=== PATIENT | male | born 1985 | race Caucasian/White ===

== ENCOUNTER 2017-11-07 17:18 | Emergency (ER) | payer SELFPAY ==
[2017-11-07 17:19] VITALS: BP 164/116; PULSE 131; RESP 18; TEMP 36.4; O2SAT 99; BMI 20.5
--- NOTE | 2017-11-07 17:52 | ED.VISSUMM ---
- ER Visit Summary Date of Service: 11/07/17 Chief Complaint: Heroin overdose History of Present Illness: The patient is a 32 M with no primary care physician. He reports that he snorted heroin in the bathroom at [facility]. He denies that this was a suicide attempt. Reports that he typically uses meth and only occasionally heroin. He received a dose of Narcan prior to arrival and is awake and appropriate. Physical Examination: Vitals: 97.6, 164/116, 131, 18, 90% on room air which is not hypoxic. General: Well-nourished and well-developed. Head: Normocephalic atraumatic. Neck: Supple, no lymphadenopathy. No JVD. Nontender. Cardiovascular: Tachycardic regular rhythm. No murmur. Respiratory: No respiratory distress. Clear to auscultation bilaterally. Abdominal: Soft, nontender, nondistended, normal bowel sounds. No guarding, rebound, or peritoneal signs. Back: Nontender. Extremities: Nontender, no edema. No injection sites. Skin: Normal color, no rash. Neurologic: Alert and oriented ?3. Cranial nerves II through XII are intact. Normal strength and sensation. Psych: Depressed and tearful. Denies suicidal ideation. Emergency Department Course and Treatment: Patient was observed for approximately 40 minutes in the emergency department. He had a normal level of consciousness. He insisted on leaving. I did discuss them the half-life of Narcan being shorter than that of heroin. He understands this and would like to leave anyway. Treatment Plan: Patient be discharged instructions follow-up at 180 as soon as possible. Return to the emergency department for any worsening symptoms. Disposition: To home in improved and stable condition. Impression: 1. Opiate overdose. This note was generated with [employer] software. It may contain incorrect words, spelling, and punctuation that were not noted in review of the chart prior to signing ED Disposition - Plan for ED Patient: Disposition: Home or Assisted Living Chief Complaint: Overdose Instructions: ED Overdose Opiate Referrals: EIGHTY,ONE [STAFF PHYSICIAN] - As soon as possible
[2017-11-07 18:04] VITALS: BP 165/102; PULSE 124; RESP 24; O2SAT 100
[2017-11-07] MEDS: 0.9% Normal Saline 1,000 ML 1000 ML IV (18:04)
== END 2017-11-07 18:05 | disposition home or self-care (01) ==
LOC: ED 18:05
PROVIDERS: Emergency Provider Emergency Medicine
DX: T40.1X1A Poisoning by heroin, accidental (unintentional), initial encounter (principal); Y92.9 Unspecified place or not applicable; F17.210 Nicotine dependence, cigarettes, uncomplicated
CPT/HCPCS: 96360; 99284; J7030

== ENCOUNTER 2017-11-08 21:13 | Outpatient (REF) | payer SELFPAY ==
[2017-11-08 21:15] VITALS: BP 173/115; PULSE 145; RESP 20; TEMP 38.2; O2SAT 98; BMI 21.2
--- NOTE | 2017-11-08 21:23 | NURSING ---
PATIENT CAME IN VIA [facility], HE IS UNDER POLICE ARREST AND IS HERE TO BE MEDICALLY CLEARED. HE IS CRYING OUT, CONFUSED AT TIMES FALLING IN AND OUT OF SLEEP. HE IS HANDCUFFED TO THE BED. HE APPARENTLY OVERDOSED YESTERDAY. HE IS NOT GIVING ME MUCH INFORMATION.
[2017-11-08] MEDS: LORazepam 2 MG/ML Syringe 0.5 MG IV (21:48)
[2017-11-08 21:51] LABS: Absolute Neutrophil Count 7.1 X10^3/uL (2.0-7.7); Basophil# 0.05 X10^3/uL; Basophil% 0.4 % (0-1); Eosinophil# 0.53 X10^3/uL; Eosinophils% 4.5 % (0-5); Hematocrit 39.3 % (40-54); Hemoglobin 12.7 g/dl (13.0-16.5); Lymphocyte % 24.9 % (19-41); Mean Corp Hgb Conc 32.3 g/gl (32-36); Mean Corpuscular Hgb 29.7 pg (27.0-32.0); Mean Platelet Vol. 9.3 fl (6.2-12.0); Monocyte% 9.4 % (0-10); Neutrophil # 7.08 X10^3/uL (2.7-7.7); Neutrophil % 60.7 % (47-70); POSITIVE COUNT NO; POSITIVE DIFFERENTIAL NO; POSITIVE MORPHOLOGY NO; Platelet Count 243 K/mm3 (150-450); RBC Distribution Width CV 13.6 % (11.6-14.6); Red Blood Count 4.27 M/mm3 (4.6-6.2); White Blood Count 11.7 K/mm3 (4.4-11.0)
--- NOTE | 2017-11-08 21:51 | NURSING ---
PATIENT IS STILL IN CUFFS BUT A LEFT SOFT WRIST RESTRAIN WAS APPLIED BY [facility] VELAZQUE[facility] TO PREVENT PATIENT FROM REMOVING RIGHT AC IV.
[2017-11-08 21:53] VITALS: BP 125/96; PULSE 122; RESP 13; TEMP 38; O2SAT 99
[2017-11-08 22:01] LABS: Anion Gap 7 (5-15); BUN 15 mg/dL (7-18); BUN/Creat Ratio 20.1 RATIO (10-20); Calcium,Total 8.9 mg/dL (8.5-10.1); Chloride 105 mmol/L (98-107); Creatinine, Serum 0.74 mg/dL (0.70-1.30); EST Glomerular Filtration Rate 128 mL/min (>60); Est Glom Filt Rate - Afr Amer 155 mL/min (>60); Estimated Creatinine Clearance 134.75 ml/min; Glucose 98 mg/dL (74-106); Potassium 3.5 mmol/L (3.5-5.1); Sodium Level 141 mmol/L (136-145)
--- NOTE | 2017-11-08 22:21 | ED.RN ---
PATIENT IS SLEEPING SOUNDLY CURRENTLY. HEART RATE IS SLOWER AT SINUS TACH AT 102.
[2017-11-08 22:44] VITALS: BP 102/62; PULSE 97; RESP 16; O2SAT 96
[2017-11-08 22:49] VITALS: TEMP 36.7
[2017-11-08 23:45] VITALS: BP 100/66; PULSE 78; RESP 11; O2SAT 98
--- NOTE | 2017-11-08 23:55 | ED.VISSUMM ---
- ER Visit Summary Date of Service: 11/08/17 Chief Complaint: Abnormal behavior History of Present Illness: The patient is a 32 M brought in by EMS. Patient reportedly was started acting out after he was arrested by police. Police initially stated he seemed to be having trouble breathing. EMS note documents moments of shaking and seeming to be talking to himself. Patient was noted to have been seen in the ER yesterday for heroin overdose. Per prior records, patient is a history of SVT and has had ablation. Physical Examination: Blood pressure is 173/115, temperature 100.7 TA, heart rate 145, respiratory rate 20, pulse ox 98% on room air. Patient is lying in the bed, whispering at times and then yelling out profanities. Head and neck examination reveals no external sign of trauma. Pupils are 4 mm and reactive. Heart is tachycardic and regular. Lung sounds are clear. Abdomen is soft with no focal tenderness on exam. Patient does answer some questions. Occasionally he will to stare blankly at his hand. Appears to be under the influence of drugs. Test Results: CBC was a white count 11.7 hemoglobin 12.7. Chemistry studies unremarkable. EtOH is negative. Emergency Department Course and Treatment: Patient was given 0.5 mg of IV Ativan. Vital signs were monitored-they are improved and stable. Patient has been sleeping comfortably. Patient will be signed out to oncoming physician. Once he is awake he is discharged with police as he is currently under arrest. Treatment Plan: [] Disposition: Discharge Impression: Drug abuse This note was generated with [employer] dictation software. It may contain incorrect words, spelling, and punctuation that were not noted in review of the chart prior to signing ED Disposition - Plan for ED Patient: Chief Complaint: Mental Health Referrals: Care Physician,No Primary [Primary Care Provider] -
--- NOTE | 2017-11-08 23:58 | ED.DEP ---
ED Disposition - Plan for ED Patient: Disposition: Home or Assisted Living Chief Complaint: Mental Health Instructions: ED Drug Abuse General Referrals: EIGHTY,ONE [STAFF PHYSICIAN] -
[2017-11-09 01:48] VITALS: BP 100/69; PULSE 82; RESP 14; O2SAT 95
--- NOTE | 2017-11-09 01:49 | ED.RN ---
IV DC'ED, CATHETER INTACT, SMALL GAUZE DRESSING PLACED. DISCHARGE INSTRUCTIONS GIVEN TO [facility] TO GO WITH PATIENT TO [facility].
== END 2017-11-09 01:51 | disposition home or self-care (01) ==
LOC: ED 21:13
PROVIDERS: Visit Provider Emergency Medicine
DX: F19.10 Other psychoactive substance abuse, uncomplicated (principal); Z86.79 Personal history of other diseases of the circulatory system; Z98.890 Other specified postprocedural states; Z72.0 Tobacco use
CPT/HCPCS: 80048; 80320; 85025; 96374; A4216; G0480

== ENCOUNTER 2019-05-06 20:17 | Inpatient (IN) | payer MEDICAID, SELFPAY ==
[2019-05-06] VITALS (10 sets, daily range): BP systolic 114–133; BP diastolic 69–99; PULSE 94–130; RESP 15–18; TEMP 36.2–37.4; O2SAT 95–100; BMI 23.6; BMI 22.1; BMI 21.3
--- NOTE | 2019-05-06 20:46 | EKG12_ITS ---
Test Reason : COUGH Blood Pressure : / mmHG Vent. Rate : 111 BPM Atrial Rate : 111 BPM P-R Int : 132 ms QRS Dur : 084 ms QT Int : 318 ms P-R-T Axes : 076 047 045 degrees QTc Int : 432 ms Sinus tachycardia Otherwise normal ECG Confirmed by DARREL SALDANA ([id number]), newspaper editor managing MACARENA AVALOS ([id number]) on 05/09/2019 1:10:26 PM Referred By: ERICKA Confirmed By:DARREL SALDANA
--- NOTE | 2019-05-06 20:47 | CT_ITS ---
STUDY: CT FACIAL BONES WITH CONTRAST REASON FOR EXAM: Male, 33 years old. FACIAL ABSCESS RIGHT SIDE RADIATION DOSAGE (If Supplied By Facility): CTDIvol = ( 29.38 ) mGy, DLP = ( 664.99 ) mGycm TECHNIQUE: The patient was scanned in a multi detector CT scanner. Transaxial imaging was performed following the intravenous administration of IV. Sagittal and coronal images were reconstructed. Individualized dose optimization techniques were used for this CT. COMPARISON: None. FINDINGS: There is cellulitis within the subcutaneous fat of the right face in association with a large thick-walled multi septated fluid collection measuring approximately 7.6 x 7.1 x 2 cm lateral to the right zygomatic arch extending both superiorly and inferiorly There are associated mildly enlarged nodes in the right posterior triangle and vascular space. Normal orbital herring and orbital contents. Normal nasal bones and anterior nasal spine. Normal facial bones. There is no demonstrated fracture. There is multifocal polypoid mucosal thickening in the right maxillary sinus and mild mucosal thickening in the left. There is also mild mucosal thickening within the ethmoid air cells CT/Sinus/Facial Bone WITH Contras IMPRESSION: Diffuse cellulitis in association with large multi septated abscess in the right facial soft tissues lateral to the zygomatic arch extending superiorly and inferiorly with associated inflammatory adenopathy.. No evidence for associated osteomyelitis. Electronically Signed: Itz Pate MD at 22:05 EDT , Service support ,
--- NOTE | 2019-05-06 20:49 | ED.VIS.GEN ---
History of Present Illness Chief Complaint: Abscess Informant: Patient Onset: Days Context: Gradual Onset Timing: Continuous Narrative: Patient is a 33-year-old male with history of SVT status post ablation presenting with facial pain, swelling and redness. Patient states is been worsening over the past few days. He has pus draining from the right side of his face. He denies any associated fever. He does have a headache and right-sided ear pain. He notes when he was walking here today he started to have a little bit of cough and runny nose. This is new within the last few hours. Patient denies any difficulty breathing or chest pain. He states he has never sought been in the ER. He denies any known history of MRSA. He does have a history of drug use but states he has not used in the last year. He states he was please from snf 3 months ago. He denies any sick contacts. He denies any other complaints at this time. He is been taking Tylenol at home with minimal relief of his symptoms. He denies any vision changes. Past Medical History - Allergies and Home Meds Allergies/Adverse Reactions: Allergies venom-honey bee [bee venom (honey bee)] Allergy (Verified 05/06/19 20:22) Anaphylaxis Past Medical History: - - SVT Surgical History: - - Cardiac ablation Smoking Status: Current every day smoker Review of Systems General: Reports: Chills, Malaise. Denies: Fever, Sweats Eyes: Denies: Visual changes - bilaterally, Diplopia ENT: Reports: Right ear pain, Rhinorrhea. Denies: Sore throat Cardiovascular: Denies: Chest pain, Palpitations Respiratory: Reports: Cough. Denies: Dyspnea, Dyspnea on exertion Gastrointestinal: Denies: Abdominal pain, Nausea, Vomiting, Diarrhea, Melena, Hematochezia Genitourinary: Denies: Dysuria, Hematuria, Frequency Musculoskeletal: Denies: Back pain, Extremity Pain Skin: Reports: Rash - Right face, Abscess - Right face Neurological: Reports: Headache. Denies: Weakness, Numbness Physical Exam Vital Signs/Narrative: Vital Signs Temp Pulse Resp BP Pulse Ox 05/06/19 20:17 97.1 F L 130 H 15 119/87 H 98 Inital Vital Signs reviewed: Yes General: Well nourished, Well developed, No Acute Distress Head: Normocephalic, Atraumatic Eyes: Perrl, EOMI, - - No exophthalmos present ENT: Moist mucous membranes, - - Rhinorrhea, erythema of the right tympanic membrane, difficult to get a good look as patient did not tolerate secondary to pain. No mastoid tenderness. Normal left tympanic membrane Neck: Supple, - - No nuchal rigidity Cardiovascular: Regular rhythm, No murmurs, Tachycardia Respiratory: No distress, CTA bilaterally, Chest nontender Abdomen: Soft, Nontender, Nondistended, Normal bowel sounds Back: Nontender, Normal Inspection Extremities: Nontender, No edema Skin: - - Warmth and erythema spreading out from the right cheek towards the ear as well as towards orbital area, associated of fluctuance approximately 5 cm in length over the right lateral face. There is active purulent discharge from 2 sites on the cheek. Erythema tracks down the right lateral neck with associated warmth. No crepitus appreciated. On patient's extremities he has multiple scattered circumferential scabs consistent with skin picking Neurological: Alert, Oriented x3, Cranial nerves II-XII grossly intact, Normal Strength, Normal Sensation Psychological: Normal affect, Normal Mood Diagnostic/Tx/Re-eval Clinical Impression(s) from Imaging Studies Facial/Sinus 05/06/19 20:47 IMPRESSION: Diffuse cellulitis in association with large multi septated abscess in the right facial soft tissues lateral to the zygomatic arch extending superiorly and inferiorly with associated inflammatory adenopathy.. No evidence for associated osteomyelitis. Electronically Signed: Izt Pate MD at 22:05 EDT , Service support , Chest X-Ray 05/06/19 21:00 IMPRESSION: No acute cardiopulmonary pathology Electronically Signed: Itz Pate MD at 21:10 EDT , Service support , Laboratory Data 05/06/19 05/06/19 05/06/19 20:59 20:59 20:59 WBC 19.1 H RBC 4.50 L Hgb 13.4 Hct 39.8 L MCV 88.4 MCH 29.8 MCHC 33.7 RDW Std Deviation 43.6 RDW Coeff of Sedrick 13.4 Plt Count 357 MPV 9.1 Immature Gran % (Auto) 0.400 Neut % (Auto) 76.8 H Lymph % (Auto) 13.6 L [place] % (Auto) 7.4 Eos % (Auto) 1.2 Baso % (Auto) 0.6 Absolute Neuts (auto) 14.7 H Absolute Lymphs (auto) 2.59 Nucleated RBC % 0 PT 14.6 INR 1.2 APTT 35.3 Sodium 135 L Potassium 3.4 L Chloride 99 Carbon Dioxide 30.0 Anion Gap 6 BUN 9 Creatinine 0.79 Estim Creat Clear Calc 127.10 Est GFR (MDRD) Af Amer 143 Est GFR (MDRD) Non-Af 118 BUN/Creatinine Ratio 11.3 Glucose 107 H Lactic Acid Calcium 9.2 Total Bilirubin 0.60 AST 22 ALT 50 Alkaline Phosphatase 120 H Total Protein 8.5 H Albumin 3.1 L Globulin 5.4 H Albumin/Globulin Ratio 0.6 L Urine Color Urine Clarity Urine pH Ur Specific [place] Urine Protein Urine Glucose (UA) Urine Ketones Urine Occult Blood Urine Nitrite Urine Bilirubin Urine Urobilinogen Ur Leukocyte Esterase Urine RBC Urine WBC Ur Squamous Epith Cells Urine Bacteria Urine Mucus 05/06/19 05/06/19 05/06/19 20:59 21:55 23:10 WBC RBC Hgb Hct MCV MCH MCHC RDW Std Deviation RDW Coeff of Sedrick Plt Count MPV Immature Gran % (Auto) Neut % (Auto) Lymph % (Auto) [place] % (Auto) Eos % (Auto) Baso % (Auto) Absolute Neuts (auto) Absolute Lymphs (auto) Nucleated RBC % PT INR APTT Sodium Potassium Chloride Carbon Dioxide Anion Gap BUN Creatinine Estim Creat Clear Calc Est GFR (MDRD) Af Amer Est GFR (MDRD) Non-Af BUN/Creatinine Ratio Glucose Lactic Acid Cancelled 1.4 Calcium Total Bilirubin AST ALT Alkaline Phosphatase Total Protein Albumin Globulin Albumin/Globulin Ratio Urine Color Straw Urine Clarity Clear Urine pH 7.0 Ur Specific [place] 1.005 Urine Protein Negative Urine Glucose (UA) Normal Urine Ketones Negative Urine Occult Blood Negative Urine Nitrite Negative Urine Bilirubin Negative Urine Urobilinogen Normal Ur Leukocyte Esterase Negative Urine RBC 0-5 SEEN Urine WBC 0-5 SEEN Ur Squamous Epith Cells 0-5 SEEN Urine Bacteria 0 SEEN Urine Mucus 0 SEEN - Rhythm Strip Rhythm Strip: Sinus Tach Rate: 111 Ectopy: None - EKG Initial EKG Interpretation: Sinus Tachycardia, - - Sinus tachycardia at a rate of 111 Normal intervals Normal axis Normal ST segments - Medical Decision Making Patient is evaluated for abscess and cellulitis to his right face. Patient does not have any involvement of the extraocular eye muscles or his vision. Patient does not have any airway compromise. There is no crepitus or signs of gas gangrene. He is mentating appropriately and I do not suspect meningoencephalitis. CT of the face shows that there is a 7 cm x 7 cm multiloculated abscess in the affected area. Is already spontaneously draining however I&D is performed to open up further. Patient does have a significant leukocytosis in the setting of tachycardia. He meets criteria for sepsis. His lactate is below 2. He is not hypotensive and is hemodynamically stable. Tachycardia does improve with pain control with IV fluids. Patient is started on IV vancomycin and Unasyn per hospital sepsis protocol after cultures were obtained. Patient admitted to medicine floor for further treatment and evaluation. I did discuss the case with ENT on-call, Dr. Kelly who is aware and will see the patient in the morning. He did recommend adding on HIV test. This is ordered. Patient is admitted to medicine service by Dr. Ellis. Procedures Procedure(s): Incision and drainage. 1% lidocaine with epinephrine locally infiltrated. Patient has a central area that is already draining. This is extended with a #10 blade. Second 1 cm vertical incision is made on the area of abscess that is just proximal to the right ear. Pressure is applied and a large amount of purulent drainage is obtained from both sites. I attempted to open up with loculations. Patient was premedicated with Dilaudid but still had significant pain with procedure. Was not able to fully complete because of pain control. No packing was placed but wounds were left open to hopefully encourage further drainage. ED Disposition - Plan for ED Patient: Disposition: Acute Care Hospital [facility] Diagnosis: Facial cellulitis, Cutaneous abscess of face, Sepsis
--- NOTE | 2019-05-06 21:00 | RAD_ITS ---
STUDY: X-RAY CHEST REASON FOR EXAM: Male, 33 years old. cough, runny nose TECHNIQUE: AP portable COMPARISON: November 11, 2016 FINDINGS: The lungs are clear and expanded. There is no demonstrated pleural abnormality. Normal size heart. Normal mediastinum and mckayla. Normal visualized pulmonary arteries. Normal visualized aortic arch and descending thoracic aorta. Dorsal spine demonstrates mild scoliosis and degenerative change. Normal visualized ribs, clavicles, and shoulders. There is no demonstrated abnormality of the visualized soft tissue structures of the upper abdomen. No significant change since prior exam RAD/Chest 1 View (Portable) IMPRESSION: No acute cardiopulmonary pathology Electronically Signed: Itz Pate MD at 21:10 EDT , Service support ,
[2019-05-06 21:21] LABS: Absolute Lymphocyte Count 2.59 X10^3/uL (0.83-4.51); Absolute Neutrophil Count 14.7 X10^3/uL (2.0-7.7); Basophil# 0.11 X10^3/uL; Basophil% 0.6 % (0-1); Eosinophil# 0.22 X10^3/uL; Eosinophils% 1.2 % (0-5); Hematocrit 39.8 % (40-54); Hemoglobin 13.4 g/dL (13.0-16.5); Lymphocyte # 2.59 X10^3/ul (4.0); Lymphocyte % 13.6 % (19-41); Mean Corp Hgb Conc 33.7 g/dL (32-36); Mean Corpuscular Hgb 29.8 pg (27.0-32.0); Mean Corpuscular Volume 88.4 fL (80-94); Mean Platelet Vol. 9.1 fl (6.2-12.0); Monocyte# 1.41 X10^3/uL; Monocyte% 7.4 % (0-10); NRBC Flagged by Analyzer 0 % (0-5); Neutrophil # 14.67 X10^3/uL (2.7-7.7); Neutrophil % 76.8 % (47-70); Platelet Count 357 K/mm3 (150-450); RBC Distribution Width CV 13.4 % (11.6-14.6); RBC Distribution Width SD 43.6 fl (35.1-43.9); White Blood Count 19.1 K/mm3 (4.4-11.0)
[2019-05-06] MEDS: Morphine 4 MG/ML Syringe IV (21:24)
[2019-05-06] MEDS: 0.9% Normal Saline 1,000 ML 999 ML IV (21:24)
[2019-05-06] MEDS: Ketorolac 15 MG/ML Vial IV (21:24)
[2019-05-06 21:26] LABS: International Normalized Ratio 1.2; Prothrombin Time (Protime)PT. 14.6 SECONDS (11.7-14.9)
[2019-05-06 21:27] LABS: Partial Thromboplast Time 35.3 Seconds (24.1-36.2)
[2019-05-06 21:34] LABS: ALB/GLOB Ratio 0.6 RATIO (0.9-2.4); AST(SGOT) 22 U/L (15-37); Alanine Aminotransfer ALT/SGPT 50 U/L (16-61); Albumin, Serum 3.1 g/dL (3.2-5.0); Alkaline Phosphatase 120 U/L (45-117); Anion Gap 6 (5-15); BUN 9 mg/dL (7-18); BUN/Creat Ratio 11.3 RATIO (10-20); Calcium,Total 9.2 mg/dL (8.5-10.1); Chloride 99 mmol/L (98-107); Creatinine, Serum 0.79 mg/dL (0.70-1.30); EST Glomerular Filtration Rate 118 mL/min (>60); Est Glom Filt Rate - Afr Amer 143 mL/min (>60); Globulin 5.4 g/dL (2.2-4.2); Glucose 107 mg/dL (74-106); Potassium 3.4 mmol/L (3.5-5.1); Protein, Total 8.5 g/dL (6.4-8.2); Sodium Level 135 mmol/L (136-145)
[2019-05-06 22:31] LABS: Lactic Acid 1.4 mmol/L (0.4-1.9)
[2019-05-06] MEDS: HYDROmorphone 1 MG/ML Syringe IV (23:01)
--- NOTE | 2019-05-06 23:16 | PCM.HP.STD ---
Problem List (1) Right facial abscess with cellulitis Status: Acute (2) History of polysubstance use Status: Chronic (3) Dental caries Status: Chronic History of Present Illness Date of Admission: 05/06/19 Chief Complaint: Left facial swelling and abscess for 1 week The patient is a 33 year old M with history of dental caries for long time came to ER with right-sided facial pain, swelling and redness progressively worsening for about 1 week. Purulent drainage from the right side of the face. Patient denies any associated fever or chills. Has headache mainly around right orbital area, frontal headache, right side of face and ear. Patient denies diplopia, nystagmus but at one time blurry vision. Patient denies any recent contact with sick person or suspected: Person in crowd. Complains of mild runny nose but denies any cough to me. He has history of polysubstance use in the past with last ER visit in October 2017 for heroin overdose and claims he has been clean for 1 year. In the past he has used heroin, fentanyl, ecstasy, methamphetamine and all possible drugs. He also smokes cigarettes about 1 pack in the beginning but currently few cigarettes. In ED he had a mild fever 99.4, heart rate 1 at 30 per blood, respiratory rate 15 with no hypoxia. Basic labs shows leukocytosis 19,000 with neutrophils 76%. K3.4, sodium 135. Alkaline phosphatase 120. Glucose 107. Albumin 3.1. Lactic acid normal. UA negative. CT face/sinus was done which shows diffuse cellulitis, with large multiseptated abscess of 7.6 x 7.1 x 2 cm, lateral to the right zygomatic arch extending both superiorly and inferiorly with inflammatory adenopathy. No evidence of associated osteomyelitis. Normal orbital herring and orbital contents. Nasal bones and anterior nasal spine. Normal facial bones. Chest x-ray reported normal. Past Medical History Past Medical History (Chronic Problems): Chronic Problems (This Medical Record has been edited. Action required.) History of polysubstance use (Chronic) Dental caries (Chronic) Allergies venom-honey bee [bee venom (honey bee)] Allergy (Verified 05/06/19 20:22) Anaphylaxis Home Medications: Ambulatory Orders Medication Instructions Recorded No Known/Unobtainable [No Known 11/11/16 Home Medications] Surgical History: - - Cardiac ablation Smoking Status: Current every day smoker Tobacco Use: Cigarettes Alcohol: None Drugs: None - *Family History Paternal History Items: No pertinent history Review of Systems Constitutional: Reports: Malaise, Weakness, Fatigue Eyes: Reports: Blurred vision. Denies: Double vision HEENT: Reports: Head Aches, Sinus Congestion. Denies: Sinus Drainage Cardiovascular: Denies: Chest Pain, Palpitations Respiratory: Denies: Cough, Shortness of breath at rest, Sputum production Gastrointestinal: Denies: Abdominal Pain, Nausea, Vomiting Genitourinary: Denies: Dysuria Musculoskeletal: Denies: Joint Pain, Joint Tenderness Skin: Reports: - - Small pustules about 2 or 3 in right forearm.. Denies: Rash, Wounds Neurological: Denies: Numbness, Tingling, Focal weakness Psychiatric: Denies: Anxiety, Depression, Homicidal Ideations, Suicidal Ideations Hematologic/ Lymphatic: Denies: Easy Bruising, Easy Bleeding VTE Information - Inpt Only VTE Present on Admission: No VTE Mechan Device Prophylaxis: None VTE Pharm Prophylaxis ordered?: Yes Patient Problems: Active and Suspected Problems (This Medical Record has been edited. Action required.) Right facial abscess with cellulitis (Acute) - Physical Exam Vitals/I&O's: Vital Signs Temp Pulse Resp BP Pulse Ox 98.6 F 98 16 125/83 H 98 05/06/19 23:08 05/06/19 23:08 05/06/19 23:08 05/06/19 23:08 05/06/19 23:08 Oxygen Delivery Method Room Air Weight: 150 lb 5.684 oz Body Mass Index (BMI) 22.1 Intake and Output for Last 24 Hours 05/04/19 05/05/19 05/06/19 23:59 23:59 23:59 Intake Total 1112 / 1112 Balance 1112 / 1112 General: Alert, Oriented x3, Cooperative HEENT: Atraumatic, PERRLA, EOMI, Normocephalic, - - Large swelling over the right side of the face, along the zygomatic arch extending up to right infraorbital region, swelling of right eyelid, extending laterally up to the external ear and inferiorly to upper half of neck. Purulent discharge present. Neck: Supple, No JVD, Negative Carotid Bruits Lungs: Clear to auscultation, Normal air movement, No rhonchi, No wheeze, No rales Cardiovascular: Regular Rhythm, Normal S1, Normal S2, No murmurs, Tachycardic Abdomen: Bowel Sounds Present, Soft, Non Tender, Non-Distended Extremities: No edema, Capillary Refill Less than 3 Seconds Skin: Rash Present - Elevated stressors divorce cellulitis present on right side of the face extending up to the neck Musculoskeletal: No Tenderness to Palpation of Joints or Extremities Lymphatic: - - Right cervical lymphadenitis and posterior triangle and anterior triangle of neck Neurological: Cranial nerves II-XII grossly intact, Deep Tendon Reflexes 2+/4 and Symmetrical, Neuro grossly intact Psych/Mental Status: Normal Affect, Appropriate Laboratory Results 05/06/19 20:59: WBC 19.1 H, RBC 4.50 L, Hgb 13.4, Hct 39.8 L, MCV 88.4, MCH 29.8, MCHC 33.7, RDW Std Deviation 43.6, RDW Coeff of Sedrick 13.4, Plt Count 357, MPV 9.1, Immature Gran % (Auto) 0.400, Neut % (Auto) 76.8 H, Lymph % (Auto) 13.6 L, Grainger % (Auto) 7.4, Eos % (Auto) 1.2, Baso % (Auto) 0.6, Absolute Neuts (auto) 14.7 H, Absolute Lymphs (auto) 2.59, Nucleated RBC % 0 05/06/19 20:59: PT 14.6, INR 1.2, APTT 35.3 05/06/19 20:59: Sodium 135 L, Potassium 3.4 L, Chloride 99, Carbon Dioxide 30.0, Anion Gap 6, BUN 9, Creatinine 0.79, Estim Creat Clear Calc 127.10, Est GFR (MDRD) Af Amer 143, Est GFR (MDRD) Non-Af 118, BUN/Creatinine Ratio 11.3, Glucose 107 H, Calcium 9.2, Total Bilirubin 0.60, AST 22, ALT 50, Alkaline Phosphatase 120 H, Total Protein 8.5 H, Albumin 3.1 L, Globulin 5.4 H, Albumin/Globulin Ratio 0.6 L 05/06/19 20:59: Lactic Acid Cancelled 05/06/19 21:55: Lactic Acid 1.4 Current Medications Vancomycin HCl 1,750 mg/ (Sodium Chloride) 535 mls @ 250 mls/hr IV X1 ONE Stop: 05/06/19 23:53 Last Admin: 05/06/19 23:01 Dose: 250 mls/hr Documented by: Assessment/Plan All Active Problems (This Medical Record has been edited. Action required.) Right facial abscess with cellulitis (Acute) The patient is a 33 year old M with history of dental caries for long time came to ER with right-sided facial pain, swelling and redness progressively worsening for about 1 week. With purulent drainage and CT findings suggestive of right facial cellulitis with abscess. Patient is being admitted in PCU with MedSurg status. CT face/sinus was done which shows diffuse cellulitis, with large multiseptated abscess of 7.6 x 7.1 x 2 cm, lateral to the right zygomatic arch extending both superiorly and inferiorly with inflammatory adenopathy. No evidence of associated osteomyelitis. Normal orbital herring and orbital contents. Nasal bones and anterior nasal spine. Normal facial bones. Chest x-ray reported normal. 1. SIRS (tachycardia, leukocytosis and low-grade fever) due to right facial soft tissue cellulitis with large multi septated complicated abscess with associated inflammatory lymphadenopathy: Patient is being admitted in PCU. Started on broad-spectrum IV antibiotic vancomycin and Zosyn. With history of polysubstance use in the past there is suspicion of MRSA. Small incision and drainage was done by ER physician but seems it is inadequate as rash of the face is still swollen and edematous. ENT Dr. Kelly is been consulted. HIV and hepatitis tests are ordered. Blood cultures x2 wound culture ordered from ER physician. MRSA nasal screen ordered. 2. History of dental caries, chronic in nature: It seems right facial cellulitis and abscess probably spread from dental caries. Patient needs to see dentist as an outpatient. 3. History of polysubstance use and smoking: Smoking cessation advised. No active polysubstance as given with the patient. U tox ordered. Patient denies alcohol use. DVT prophylaxis: Moderate risk in view of sepsis in head and neck region: Lovenox 40 mg subcu daily. Laboratory Results 05/06/19 20:59: WBC 19.1 H, RBC 4.50 L, Hgb 13.4, Hct 39.8 L, MCV 88.4, MCH 29.8, MCHC 33.7, RDW Std Deviation 43.6, RDW Coeff of Sedrick 13.4, Plt Count 357, MPV 9.1, Immature Gran % (Auto) 0.400, Neut % (Auto) 76.8 H, Lymph % (Auto) 13.6 L, Grainger % (Auto) 7.4, Eos % (Auto) 1.2, Baso % (Auto) 0.6, Absolute Neuts (auto) 14.7 H, Absolute Lymphs (auto) 2.59, Nucleated RBC % 0 05/06/19 20:59: PT 14.6, INR 1.2, APTT 35.3 05/06/19 20:59: Sodium 135 L, Potassium 3.4 L, Chloride 99, Carbon Dioxide 30.0, Anion Gap 6, BUN 9, Creatinine 0.79, Estim Creat Clear Calc 127.10, Est GFR (MDRD) Af Amer 143, Est GFR (MDRD) Non-Af 118, BUN/Creatinine Ratio 11.3, Glucose 107 H, Calcium 9.2, Total Bilirubin 0.60, AST 22, ALT 50, Alkaline Phosphatase 120 H, Total Protein 8.5 H, Albumin 3.1 L, Globulin 5.4 H, Albumin/Globulin Ratio 0.6 L 05/06/19 20:59: Lactic Acid Cancelled 05/06/19 21:55: Lactic Acid 1.4 05/06/19 23:10: Urine Color Straw, Urine Clarity Clear, Urine pH 7.0, Ur Specific [place] 1.005, Urine Protein Negative, Urine Glucose (UA) Normal, Urine Ketones Negative, Urine Occult Blood Negative, Urine Nitrite Negative, Urine Bilirubin Negative, Urine Urobilinogen Normal, Ur Leukocyte Esterase Negative, Urine RBC 0-5 SEEN, Urine WBC 0-5 SEEN, Ur Squamous Epith Cells 0-5 SEEN, Urine Bacteria 0 SEEN, Urine Mucus 0 SEEN 05/06/19 23:35: HIV 1&2 Antibody Pending Clinical Impression(s) from Imaging Studies Facial/Sinus 05/06/19 20:47 IMPRESSION: Diffuse cellulitis in association with large multi septated abscess in the right facial soft tissues lateral to the zygomatic arch extending superiorly and inferiorly with associated inflammatory adenopathy.. No evidence for associated osteomyelitis. Electronically Signed: Itz Pate MD at 22:05 EDT , Service support , Chest X-Ray 05/06/19 21:00 IMPRESSION: No acute cardiopulmonary pathology Electronically Signed: Itz Pate MD at 21:10 EDT , Service support , Inpatient E&M: [id number] Init Hosp L3
[2019-05-06 23:20] LABS: Bacteria 0 SEEN /hpf (None Seen); Mucous, Urine 0 SEEN /hpf (<or=2+)
[2019-05-06 23:25] LABS: Color, Urine Straw (Yellow); Glucose, Dipstick Normal (Normal); Ketone-Dipstick Negative (Negative); Leukocyte Esterase-Dipstick Negative /ul (Negative); Nitrite-Dipstick Negative (Negative); Occult Blood-Urine Negative /ul (Negative); Protein-Dipstick Negative (Negative); Specific Gravity, Urine 1.005 (1.002-1.030); Urine Bilirubin Dipstick Negative (Negative); Urine Clarity Clear (Clear); Urine Urobilinogen Normal (Normal)
[2019-05-06 23:35] LABS: Squamous Epithelial Cells - UA 0-5 SEEN /hpf (0-5)
[2019-05-06 23:36] LABS: Red Blood Cells-Urine 0-5 SEEN /hpf (0-5)
[2019-05-06 23:37] LABS: White Blood Cells 0-5 SEEN /hpf (0-5)
[2019-05-07] VITALS (8 sets, daily range): BP systolic 105–124; BP diastolic 59–72; PULSE 80–94; RESP 16–18; TEMP 36.8–37; O2SAT 97–100
[2019-05-07 00:35] LABS: Magnesium 2.1 mg/dL (1.6-2.6)
[2019-05-07 00:44] LABS: HIV - WCH Non-Reactive (Nonreactive)
--- NOTE | 2019-05-07 00:44 | PCM.RX.CS ---
Consult Pharmacy has been consulted to manage selected antiobiotic: Vancomycin Type of Consult: New start Suspected Infection: Skin/Soft tissue Labs: Sodium 135 mmol/L (136-145) L 05/06/19 20:59 Potassium 3.4 mmol/L (3.5-5.1) L 05/06/19 20:59 Chloride 99 mmol/L (98-107) 05/06/19 20:59 Carbon Dioxide 30.0 mmol/L (21.0-32.0) 05/06/19 20:59 Anion Gap 6 (5-15) 05/06/19 20:59 BUN 9 mg/dL (7-18) 05/06/19 20:59 Creatinine 0.79 mg/dL (0.70-1.30) 05/06/19 20:59 Est GFR (MDRD) Af Amer 143 mL/min (>60) 05/06/19 20:59 Est GFR (MDRD) Non-Af 118 mL/min (>60) 05/06/19 20:59 BUN/Creatinine Ratio 11.3 RATIO (10-20) 05/06/19 20:59 Glucose 107 mg/dL (74-106) H 05/06/19 20:59 Weight used for dosin.4 kg Estimated Creatinine Clearance: 125.6 Goal Trough: 15-20 mcg/mL Pharmacy Plan for Drug Dosing: Pharmacy Service will continue to monitor and adjust dosing as required. Medications Vancomycin HCl 750 mg/ Sodium (Chloride) 265 mls @ 250 mls/hr IV Q8H KULDIP Discontinued Medications Vancomycin HCl 1,750 mg/ (Sodium Chloride) 535 mls @ 250 mls/hr IV X1 ONE Stop: 05/06/19 23:53 Last Admin: 05/06/19 23:01 Dose: 250 mls/hr Documented by: Follow-Up Labs: Trough Vancomycin Labs to be done on [date and time ordered]: 05/06 @ [id number]
[2019-05-07] MEDS: 0.9% Normal Saline 1,000 ML 125 ML IV ×2 (00:58→10:04)
[2019-05-07] MEDS: Enoxaparin 40 MG/0.4 ML Syringe SC ×2 (00:58→10:05)
[2019-05-07 02:40] LABS: M R Staph aureus DNA By PCR Negative (Negative); Probe Check PASS; Specimen Processing Control PASS
[2019-05-07 02:41] LABS: Probe Check PASS; Staph aureus DNA By PCR POSITIVE (Negative)
[2019-05-07 02:42] LABS: M R Staph aureus DNA By PCR POSITIVE (Negative)
--- NOTE | 2019-05-07 06:35 | NURSING ---
Pts primary rn aware that lab called wanting to make sure we are aware that there is an outstanding urine collection for drug screen that needs collected yet.
[2019-05-07] MEDS: oxyCODONE 5 MG Tablet PO ×5 (06:37→23:07)
[2019-05-07 07:03] LABS: Absolute Lymphocyte Count 2.93 X10^3/uL (0.83-4.51); Absolute Neutrophil Count 9.8 X10^3/uL (2.0-7.7); Basophil# 0.11 X10^3/uL; Basophil% 0.7 % (0-1); Eosinophil# 0.53 X10^3/uL; Eosinophils% 3.6 % (0-5); Hematocrit 36.8 % (40-54); Lymphocyte # 2.93 X10^3/ul (4.0); Lymphocyte % 19.8 % (19-41); Mean Corp Hgb Conc 32.6 g/dL (32-36); Mean Corpuscular Hgb 28.7 pg (27.0-32.0); Mean Platelet Vol. 9.2 fl (6.2-12.0); Monocyte% 9.5 % (0-10); NRBC Flagged by Analyzer 0 % (0-5); Neutrophil % 66.1 % (47-70); Platelet Count 301 K/mm3 (150-450); RBC Distribution Width CV 13.8 % (11.6-14.6); Red Blood Count 4.18 M/mm3 (4.6-6.2); White Blood Count 14.8 K/mm3 (4.4-11.0)
[2019-05-07 07:22] LABS: Anion Gap 6 (5-15); BUN 8 mg/dL (7-18); BUN/Creat Ratio 13.8 RATIO (10-20); Calcium,Total 7.9 mg/dL (8.5-10.1); Chloride 107 mmol/L (98-107); Creatinine, Serum 0.58 mg/dL (0.70-1.30); EST Glomerular Filtration Rate 170 mL/min (>60); Est Glom Filt Rate - Afr Amer 205 mL/min (>60); Estimated Creatinine Clearance 171.08 ml/min; Glucose 110 mg/dL (74-106); Sodium Level 139 mmol/L (136-145)
[2019-05-07] MEDS: Famotidine 20 MG Tablet PO ×2 (10:05→21:01)
[2019-05-07] MEDS: 0.9% Saline Lock 10 ML Syringe IV (10:44)
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
[2019-05-07 16:10] LABS: Amphetamine Urine VISTA NEGATIVE (<1000 ng/mL); Barbiturate Urine VISTA NEGATIVE (< 200 ng/mL); Benzodiazepine Urine VISTA NEGATIVE (< 200 ng/mL); Cocaine Urine VISTA NEGATIVE (< 300 ng/mL); Ecstacy Urine VISTA NEGATIVE (< 500 ng/mL); Methadone Urine VISTA NEGATIVE (< 300 ng/mL); PCP Urine VISTA NEGATIVE (< 25 ng/mL); THC Urine VISTA NEGATIVE (< 50 ng/mL); Vista UDS pH Range 6
--- NOTE | 2019-05-07 16:18 | CON.PCM_ITS ---
Problem List (1) MRSA (methicillin resistant staph aureus) culture positive Status: Acute (2) Right facial abscess with cellulitis Status: Acute (3) History of polysubstance use Status: Chronic (4) Dental caries Status: Chronic Reason for Consult Date of Consultation: 05/07/19 Reason for Consultation: draining facial abscess History of Present Illness: The patient is a 33 year old M who presented to the ED with progressive right facial swelling and drainage after traumatic injury to the area. This was drained in the ED and he is admitted for IV therapy. MRSA screen is positive, wound culture is pending. WBC count has declined significantly in the last 18 hours and he is afebrile. His chart notes, labs, vital signs and CT scan is reviewed remotely in lieu of face to face evaluation in light of his complaint of recent cough and nasal congestion and the extreme limitation of availability of PPE in the COVID-19 pandemic. [] Past Medical History Past Medical History (Chronic Problems): Chronic Problems (This Medical Record has been edited. Action required.) History of polysubstance use (Chronic) Dental caries (Chronic) Allergies venom-honey bee [bee venom (honey bee)] Allergy (Verified 05/06/19 20:22) Anaphylaxis Home Medications: Ambulatory Orders Medication Instructions Recorded No Known/Unobtainable [No Known 11/11/16 Home Medications] Surgical History: - - Cardiac ablation Smoking Status: Current every day smoker Tobacco Use: Cigarettes Alcohol: None Drugs: None - *Family History Paternal History Items: No pertinent history Review of Systems Unable to obtain accurate/complete ROS d/t: external document review performed for intial assessment Patient Problems: Active and Suspected Problems (This Medical Record has been edited. Action required.) Right facial abscess with cellulitis (Acute) MRSA (methicillin resistant staph aureus) culture positive (Acute) - Physical Exam Vitals/I&O's: Vital Signs Temp Pulse Resp BP Pulse Ox 98.6 F 91 16 116/60 98 05/07/19 14:34 05/07/19 14:34 05/07/19 14:34 05/07/19 14:34 05/07/19 14:34 Oxygen Delivery Method Room Air Weight: 67.4 kg Body Mass Index (BMI) 21.3 Intake and Output for Last 24 Hours 05/05/19 05/06/19 05/07/19 23:59 23:59 23:59 Intake Total 1112 / 1352 2882.08 / 2882.08 Balance 1112 / 1352 2882.08 / 2882.08 Comment: defered given improving and CT finding revealing a superficial collection Microbiology Past 72 Hours 05/06/19 23:10 Wound - Face Gram Stain - Final Laboratory Results 05/06/19 20:50: Magnesium 2.1 05/06/19 20:50: Hepatitis A IgM Ab Pending, Hep Bs Antigen Pending, Hep B Core IgM Ab Pending, Hepatitis C Ab (EIA) Pending 05/06/19 20:59: WBC 19.1 H, RBC 4.50 L, Hgb 13.4, Hct 39.8 L, MCV 88.4, MCH 29.8, MCHC 33.7, RDW Std Deviation 43.6, RDW Coeff of Sedrick 13.4, Plt Count 357, MPV 9.1, Immature Gran % (Auto) 0.400, Neut % (Auto) 76.8 H, Lymph % (Auto) 13.6 L, [place] % (Auto) 7.4, Eos % (Auto) 1.2, Baso % (Auto) 0.6, Absolute Neuts (auto) 14.7 H, Absolute Lymphs (auto) 2.59, Nucleated RBC % 0 05/06/19 20:59: PT 14.6, INR 1.2, APTT 35.3 05/06/19 20:59: Sodium 135 L, Potassium 3.4 L, Chloride 99, Carbon Dioxide 30.0, Anion Gap 6, BUN 9, Creatinine 0.79, Estim Creat Clear Calc 127.10, Est GFR (MDRD) Af Amer 143, Est GFR (MDRD) Non-Af 118, BUN/Creatinine Ratio 11.3, Glucose 107 H, Calcium 9.2, Total Bilirubin 0.60, AST 22, ALT 50, Alkaline Phosphatase 120 H, Total Protein 8.5 H, Albumin 3.1 L, Globulin 5.4 H, Albumin/Globulin Ratio 0.6 L 05/06/19 20:59: Lactic Acid Cancelled 05/06/19 21:55: Lactic Acid 1.4 05/06/19 23:10: Urine Color Straw, Urine Clarity Clear, Urine pH 7.0, Ur Specific [place] 1.005, Urine Protein Negative, Urine Glucose (UA) Normal, Urine Ketones Negative, Urine Occult Blood Negative, Urine Nitrite Negative, Urine Bilirubin Negative, Urine Urobilinogen Normal, Ur Leukocyte Esterase Negative, Urine RBC 0-5 SEEN, Urine WBC 0-5 SEEN, Ur Squamous Epith Cells 0-5 SEEN, Urine Bacteria 0 SEEN, Urine Mucus 0 SEEN 05/06/19 23:35: HIV 1&2 Antibody Non-Reactive 05/07/19 00:50: MRSA (PCR) Negative 05/07/19 00:50: S.aureus Protein A PCR POSITIVE H, MRSA (PCR) POSITIVE H 05/07/19 06:37: WBC 14.8 H, RBC 4.18 L, Hgb 12.0 L, Hct 36.8 L, MCV 88.0, MCH 28.7, MCHC 32.6, RDW Std Deviation 44.0 H, RDW Coeff of Sedrick 13.8, Plt Count 301, MPV 9.2, Immature Gran % (Auto) 0.300, Neut % (Auto) 66.1, Lymph % (Auto) 19.8, [place] % (Auto) 9.5, Eos % (Auto) 3.6, Baso % (Auto) 0.7, Absolute Neuts (auto) 9.8 H, Absolute Lymphs (auto) 2.93, Nucleated RBC % 0 05/07/19 06:37: Sodium 139, Potassium 4.0, Chloride 107, Carbon Dioxide 26.0, Anion Gap 6, BUN 8, Creatinine 0.58 L, Estim Creat Clear Calc 171.08, Est GFR (MDRD) Af Amer 205, Est GFR (MDRD) Non-Af 170, BUN/Creatinine Ratio 13.8, Glucose 110 H, Calcium 7.9 L 05/07/19 14:40: Urine Opiates Screen POSITIVE H, Urine Methadone Screen NEGATIVE , Ur Barbiturates Screen NEGATIVE, Ur Phencyclidine Scrn NEGATIVE, Ur Amphetamines Screen NEGATIVE, U Methamphetamin-MDMA NEGATIVE, U Benzodiazepines Scrn NEGATIVE, Urine Cocaine Screen NEGATIVE, U Cannabinoids Screen NEGATIVE, Ur Drug Screen Comment Current Medications Acetaminophen (Tylenol) 650 mg PO Q6H PRN PRN PRN Reason: Pain Score 1-10/Temp > 100.7 F Al Hydroxide/Mg Hydroxide (Mylanta Ii) 30 ml PO Q6H PRN PRN PRN Reason: Gastric Burning Dextrose (D50w Syringe) 0 gm IV X1 PRN; Protocol PRN Reason: Hypoglycemia Enoxaparin Sodium (Lovenox) 40 mg SC DAILY [facility] Last Admin: 05/07/19 10:05 Dose: 40 mg Documented by: Famotidine (Pepcid) 20 mg PO BID [facility] Last Admin: 05/07/19 10:05 Dose: 20 mg Documented by: Glucagon () 1 mg IM .X1 PRN PRN Reason: Hypoglycemia Piperacillin Sod/Tazobactam (Sod 3.375 gm/ Sodium Chloride) 50 mls @ 12.5 mls/hr IV Q8 [facility] Last Admin: 05/07/19 13:45 Dose: 12.5 mls/hr Documented by: Vancomycin IV Pharmacy to Dose (1 ea/ Sodium Chloride) 500 mls @ 250 mls/hr IV X1 PRN; Protocol PRN Reason: Rx to Dose Vancomycin HCl 750 mg/ Sodium (Chloride) 265 mls @ 250 mls/hr IV Q8H [facility] Last Admin: 05/07/19 14:54 Dose: 250 mls/hr Documented by: Sodium Chloride () 250 mls @ 15 mls/hr IV .[id number] PRN PRN Reason: Saline Flush Melatonin (Melatonin) 3 mg PO QHS PRN PRN PRN Reason: INSOMNIA Morphine Sulfate () 2 mg IV Q3H PRN PRN PRN Reason: Pain Score 6-10/10 Nitroglycerin (Nitrostat) 0.4 mg SUBLINGUAL Q5M PRN PRN Reason: CARDIAC/CHEST PAIN Nutritional Formula (Lactose Free) (Ensure Enlive) 120 ml PO 4X/DAY [facility] Last Admin: 05/07/19 13:45 Dose: 120 ml Documented by: Ondansetron HCl (Zofran) 4 mg IV Q8H PRN PRN PRN Reason: NAUSEA/VOMITING Oxycodone HCl (Oxyir) 5 mg PO Q4H PRN PRN PRN Reason: Pain Score 4-5/10 Last Admin: 05/07/19 14:33 Dose: 5 mg Documented by: Prochlorperazine Edisylate (Compazine Iv) 5 mg IV Q4H PRN PRN PRN Reason: Breakthrough Nausea/Vomiting Senna/Docusate Sodium (Senokot-S, Susanne-Colace) 2 tablet PO BID PRN PRN PRN Reason: Constipation Sodium Chloride () 10 - 40 ml IV UD PRN PRN Reason: SALINE FLUSH Assessment/Plan All Active Problems (This Medical Record has been edited. Action required.) Right facial abscess with cellulitis (Acute) MRSA (methicillin resistant staph aureus) culture positive (Acute) This patient present with a high risk history of recent incarceration, MRSA positive screen, and drug use with recent onset of cough and nasal congestion. I have reviewed his lab values and CT scan and discussed my recommendations with [facility] hospitalist physician. He appears to have a superficial infection of the right subcutaneous tissues that clinically has been drained with the ED and with a declining WBC count on IV therapy. Although dental caries are reported, I do not see any tract or suggested communication with the dentition on the right, although there is inflammatory change of the maxillary sinus floor that is likely dental in nature but appears to be unrelated to his facial swelling. I suspect this is the result of infected hematoma in light of his recent trauma to this area. Ongoing IV antibiotic therapy and observation is advised for now as this area has spontaneously drained and further opened in the ED therefore no further surgical intervention is indicated at this time. In light of his recent respiratory complaints, testing for COVID-19 is strongly encouraged. HIV testing is already initiated at my recommendation given his risk factors. If he fails to show continued improvement and further surgical treatment is felt to be indicated I may be contacted for further guidance, however, the availability of our facility's surgical services remain uncertain at this time.
[2019-05-07] MEDS: Acetaminophen 325 MG Tablet 650 MG PO (21:16)
[2019-05-07] MEDS: MELATONIN 3 MG TABLET PO (23:07)
[2019-05-08 00:35] LABS: Vancomycin, Trough Level 6.3 ug/mL (5.0-15.0)
[2019-05-08 03:44] VITALS: BP 102/57; PULSE 70; RESP 16; TEMP 36.6; O2SAT 99
[2019-05-08] MEDS: oxyCODONE 5 MG Tablet PO ×3 (03:47→22:14)
[2019-05-08] MEDS: Acetaminophen 325 MG Tablet 650 MG PO ×2 (03:48→15:15)
--- NOTE | 2019-05-08 04:30 | PCM.RX.CS ---
Consult Pharmacy has been consulted to manage selected antiobiotic: Vancomycin Type of Consult: Follow-up Labs: Sodium 139 mmol/L (136-145) 05/07/19 06:37 Potassium 4.0 mmol/L (3.5-5.1) 05/07/19 06:37 Chloride 107 mmol/L (98-107) 05/07/19 06:37 Carbon Dioxide 26.0 mmol/L (21.0-32.0) 05/07/19 06:37 Anion Gap 6 (5-15) 05/07/19 06:37 BUN 8 mg/dL (7-18) 05/07/19 06:37 Creatinine 0.58 mg/dL (0.70-1.30) L 05/07/19 06:37 Est GFR (MDRD) Af Amer 205 mL/min (>60) 05/07/19 06:37 Est GFR (MDRD) Non-Af 170 mL/min (>60) 05/07/19 06:37 BUN/Creatinine Ratio 13.8 RATIO (10-20) 05/07/19 06:37 Glucose 110 mg/dL (74-106) H 05/07/19 06:37 Vancomycin Trough 6.3 ug/mL (5.0-15.0) 05/07/19 22:33 Microbiology: Microbiology 05/06/19 23:10 Wound - Face Gram Stain - Final Goal Trough: 15-20 mcg/mL Pharmacy Plan for Drug Dosing: Pharmacy Service will continue to monitor and adjust dosing as required. TROUGH 6.3 AND SCr DECREASED TO 0.58 INCREASE TO 1500 Q8H Follow-Up Labs: Trough Vancomycin Labs to be done on [date and time ordered]: 05/08 @ [id number]
[2019-05-08 07:14] VITALS: O2SAT 97
[2019-05-08 08:02] LABS: Absolute Lymphocyte Count 2.25 X10^3/uL (0.83-4.51); Absolute Neutrophil Count 4.2 X10^3/uL (2.0-7.7); Basophil# 0.11 X10^3/uL; Basophil% 1.3 % (0-1); Eosinophil# 0.96 X10^3/uL; Eosinophils% 11.5 % (0-5); Hematocrit 39.1 % (40-54); Hemoglobin 12.7 g/dL (13.0-16.5); Lymphocyte # 2.25 X10^3/ul (4.0); Mean Corp Hgb Conc 32.5 g/dL (32-36); Mean Corpuscular Hgb 29.2 pg (27.0-32.0); Mean Corpuscular Volume 89.9 fL (80-94); Monocyte# 0.75 X10^3/uL; NRBC Flagged by Analyzer 0 % (0-5); Neutrophil # 4.23 X10^3/uL (2.7-7.7); Neutrophil % 50.7 % (47-70); Platelet Count 280 K/mm3 (150-450); RBC Distribution Width CV 13.6 % (11.6-14.6); RBC Distribution Width SD 45.1 fl (35.1-43.9); Red Blood Count 4.35 M/mm3 (4.6-6.2); White Blood Count 8.3 K/mm3 (4.4-11.0)
[2019-05-08 08:18] LABS: Anion Gap 5 (5-15); BUN 10 mg/dL (7-18); Calcium,Total 8.2 mg/dL (8.5-10.1); Chloride 108 mmol/L (98-107); Creatinine, Serum 0.59 mg/dL (0.70-1.30); EST Glomerular Filtration Rate 167 mL/min (>60); Est Glom Filt Rate - Afr Amer 202 mL/min (>60); Estimated Creatinine Clearance 168.18 ml/min; Glucose 92 mg/dL (74-106); Potassium 4.2 mmol/L (3.5-5.1); Sodium Level 139 mmol/L (136-145)
--- NOTE | 2019-05-08 09:24 | PN_ITS ---
Patient Problems: Active and Suspected Problems (This Medical Record has been edited. Action required.) Right facial abscess with cellulitis (Acute) MRSA (methicillin resistant staph aureus) culture positive (Acute) Subjective: Patient seen and examined. Pain and swelling have improved markedly. He still does have some pain in the site of the swelling on the right side of the face. He denies fever or chills, nausea vomiting or diarrhea. Review of symptoms otherwise negative. Labs and vitals reviewed. WBC is down to 8.3. Hemoglobin is 12.7. Vitals/I&O's: Vital Signs Temp Pulse Resp BP Pulse Ox 97.9 F 70 16 102/57 L 97 05/08/19 03:44 05/08/19 03:44 05/08/19 03:44 05/08/19 03:44 05/08/19 07:14 Oxygen Delivery Method Room Air Weight: 148 lb 9.465 oz Body Mass Index (BMI) 21.3 Intake and Output for Last 24 Hours 05/06/19 05/07/19 05/08/19 23:59 23:59 23:59 Intake Total 1112 / 1352 4884.25 / 4884.25 486.25 / 486.25 Output Total 525 / 525 Balance 1112 / 1352 4359.25 / 4359.25 486.25 / 486.25 General: Alert, Oriented x3, Cooperative, No apparent distress HEENT: - - erythema and swelling of right periorbital and temporal area and right cheek is much better, abscess still draining on right [employer]. dressing intact Oral: Moist Mucosa Neck: Supple, No JVD, Negative Carotid Bruits Lungs: Clear to auscultation, Normal air movement, No rhonchi, No wheeze Cardiovascular: Regular rate, Regular Rhythm, Normal S1, Normal S2, No murmurs Abdomen: Bowel Sounds Present, Soft, Non Tender Extremities: No clubbing, No cyanosis, No edema, Capillary Refill Less than 3 Seconds Skin: No rashes, No breakdown Musculoskeletal: No Tenderness to Palpation of Joints or Extremities Lymphatic: No Cervical, Supraclavicular, or Inguinal Adenopathy Neurological: Cranial nerves II-XII grossly intact, Neuro grossly intact, Motor Exam 5/5 strength throughout Psych/Mental Status: Normal Affect, Appropriate, Alert and oriented to time, place, person, mood and affect Microbiology Past 72 Hours 05/06/19 23:10 Wound - Face Gram Stain - Final Laboratory Results 05/07/19 14:40: Urine Opiates Screen POSITIVE H, Urine Methadone Screen NEGATIVE, Ur Barbiturates Screen NEGATIVE, Ur Phencyclidine Scrn NEGATIVE, Ur Amphetamines Screen NEGATIVE, U Methamphetamin-MDMA NEGATIVE, U Benzodiazepines Scrn NEGATIVE, Urine Cocaine Screen NEGATIVE, U Cannabinoids Screen NEGATIVE, Ur Drug Screen Comment 05/07/19 22:33: Vancomycin Trough 6.3 05/08/19 07:47: WBC 8.3, RBC 4.35 L, Hgb 12.7 L, Hct 39.1 L, MCV 89.9, MCH 29.2, MCHC 32.5, RDW Std Deviation 45.1 H, RDW Coeff of Sedrick 13.6, Plt Count 280, MPV 9.0, Immature Gran % (Auto) 0.500, Neut % (Auto) 50.7, Lymph % (Auto) 27.0, [place] % (Auto) 9.0, Eos % (Auto) 11.5 H, Baso % (Auto) 1.3 H, Absolute Neuts (auto) 4.2, Absolute Lymphs (auto) 2.25, Nucleated RBC % 0 05/08/19 07:47: Sodium 139, Potassium 4.2, Chloride 108 H, Carbon Dioxide 26.0, Anion Gap 5, BUN 10, Creatinine 0.59 L, Estim Creat Clear Calc 168.18, Est GFR (MDRD) Af Amer 202, Est GFR (MDRD) Non-Af 167, BUN/Creatinine Ratio 17.0, Glucose 92, Calcium 8.2 L Diagnostic Data Facial/Sinus 05/06/19 20:47 IMPRESSION: Diffuse cellulitis in association with large multi septated abscess in the right facial soft tissues lateral to the zygomatic arch extending superiorly and inferiorly with associated inflammatory adenopathy.. No evidence for associated osteomyelitis. Electronically Signed: Itz Pate MD at 22:05 EDT , Service support , Chest X-Ray 05/06/19 21:00 IMPRESSION: No acute cardiopulmonary pathology Electronically Signed: Itz Pate MD at 21:10 EDT , Service support , Current Medications Acetaminophen (Tylenol) 650 mg PO Q6H PRN PRN PRN Reason: Pain Score 1-10/Temp > 100.7 F Last Admin: 05/08/19 03:48 Dose: 650 mg Documented by: Al Hydroxide/Mg Hydroxide (Mylanta Ii) 30 ml PO Q6H PRN PRN PRN Reason: Gastric Burning Dextrose (D50w Syringe) 0 gm IV X1 PRN; Protocol PRN Reason: Hypoglycemia Enoxaparin Sodium (Lovenox) 40 mg SC DAILY [facility] Last Admin: 05/07/19 10:05 Dose: 40 mg Documented by: Famotidine (Pepcid) 20 mg PO BID [facility] Last Admin: 05/07/19 21:01 Dose: 20 mg Documented by: Glucagon () 1 mg IM .X1 PRN PRN Reason: Hypoglycemia Piperacillin Sod/Tazobactam (Sod 3.375 gm/ Sodium Chloride) 50 mls @ 12.5 mls/hr IV Q8 [facility] Last Admin: 05/08/19 05:44 Dose: 12.5 mls/hr Documented by: Vancomycin IV Pharmacy to Dose (1 ea/ Sodium Chloride) 500 mls @ 250 mls/hr IV X1 PRN; Protocol PRN Reason: Rx to Dose Sodium Chloride () 250 mls @ 15 mls/hr IV .[id number] PRN PRN Reason: Saline Flush Last Infusion: 05/08/19 07:35 Dose: 0 mls/hr Documented by: Vancomycin HCl 1,500 mg/ (Sodium Chloride) 530 mls @ 250 mls/hr IV Q8H [facility] Last Admin: 05/08/19 07:33 Dose: 250 mls/hr Documented by: Melatonin (Melatonin) 3 mg PO QHS PRN PRN PRN Reason: INSOMNIA Last Admin: 05/07/19 23:07 Dose: 3 mg Documented by: Morphine Sulfate () 2 mg IV Q3H PRN PRN PRN Reason: Pain Score 6-10/10 Nitroglycerin (Nitrostat) 0.4 mg SUBLINGUAL Q5M PRN PRN Reason: CARDIAC/CHEST PAIN Nutritional Formula (Lactose Free) (Ensure Enlive) 120 ml PO 4X/DAY [facility] Last Admin: 05/07/19 21:01 Dose: 120 ml Documented by: Ondansetron HCl (Zofran) 4 mg IV Q8H PRN PRN PRN Reason: NAUSEA/VOMITING Oxycodone HCl (Oxyir) 5 mg PO Q4H PRN PRN PRN Reason: Pain Score 4-5/10 Last Admin: 05/08/19 03:47 Dose: 5 mg Documented by: Prochlorperazine Edisylate (Compazine Iv) 5 mg IV Q4H PRN PRN PRN Reason: Breakthrough Nausea/Vomiting Senna/Docusate Sodium (Senokot-S, Susanne-Colace) 2 tablet PO BID PRN PRN PRN Reason: Constipation Sodium Chloride () 10 - 40 ml IV UD PRN PRN Reason: SALINE FLUSH STROKE Vital Signs/Narrative: Vital Signs Pulse Ox 05/08/19 07:14 97 Medical Necessity - Tobacco Use Smoking Status: Current every day smoker Tobacco Use: Cigarettes Assessment/Plan All Active Problems (This Medical Record has been edited. Action required.) Right facial abscess with cellulitis (Acute) MRSA (methicillin resistant staph aureus) culture positive (Acute) 1. Sepsis due to right facial abscess and cellulitis * wbc has trended down to 8.3 * pain and swelling is much better. * on IV vancomycin and zosyn * blood culture pending * wound gram statin showing rare gram positive cocci in clusters, rare wbcs adn 3+ rbcs * ENT consulted- per ENT documentation, Dr Kelly reviewed patient's records, chart notes, labs and vitals signs as well as CT scan remotely due to his concerns for COVID infection and limited availability of PPE in the COVID pandemic; per their rec's he appears to have a superficial infection of right subcutaneous tissue that has has been drained in the ED. Recommend continuous IV antibiotic therapy and observation for now as a wound spontaneously drained and no need for further surgical intervention at this time. * Per ENT recommendations, advised testing for COVID 19. However patient has just had mild sinus congestion and has not had any contact with any patient with COVID 19 or traveled recently. He currently has no cough or respiratory symptoms at the moment. His fever and elevated white cell count could be explained by cellulitis and abscess, fever has resolved, and elevated wbc is down to 8 with administration of IV antibiotics I therefore do not see any indication for CO VID 19 testing at the moment whilst he is being managed for right facial abscess with cellulitis. * 2. History of dental caries; to follow up with dentist on outpatient basis 3. Nicotine dependence: on nicotine patch 21mg daily. counselled to quit. DVT prophylaxis; [facility] Inpatient E&M: [id number] Subs Hosp L2
[2019-05-08 09:41] VITALS: BP 118/70; PULSE 81; RESP 16; TEMP 36.8; O2SAT 99
[2019-05-08] MEDS: Enoxaparin 40 MG/0.4 ML Syringe SC (09:42)
[2019-05-08] MEDS: Famotidine 20 MG Tablet PO ×2 (09:42→22:04)
[2019-05-08] MEDS: 0.9% Saline Lock 10 ML Syringe IV ×2 (10:43→15:15)
[2019-05-08 14:07] LABS: HEPATITIS B SURFACE AG Negative (Negative); Hepatitis B Core AB IgM Negative (Negative)
[2019-05-08 15:13] VITALS: BP 117/67; PULSE 86; RESP 16; TEMP 36.7; O2SAT 99
[2019-05-08 16:24] LABS: Hep C Antibodies 0.1 s/co ratio (0.0-0.9)
[2019-05-08 16:26] LABS: Hepatitis A IgM Antibody Positive (Negative)
[2019-05-08 22:02] VITALS: BP 120/75; PULSE 73; RESP 18; TEMP 36.6; O2SAT 100
[2019-05-08] MEDS: MELATONIN 3 MG TABLET PO (22:15)
[2019-05-09 03:01] VITALS: BP 110/65; PULSE 69; RESP 18; TEMP 36.8; O2SAT 97
[2019-05-09] MEDS: oxyCODONE 5 MG Tablet PO (06:50)
[2019-05-09 06:55] LABS: Absolute Lymphocyte Count 2.42 X10^3/uL (0.83-4.51); Absolute Neutrophil Count 4.8 X10^3/uL (2.0-7.7); Basophil# 0.13 X10^3/uL; Basophil% 1.4 % (0-1); Eosinophil# 1.17 X10^3/uL; Eosinophils% 12.6 % (0-5); Hematocrit 38.1 % (40-54); Hemoglobin 12.8 g/dL (13.0-16.5); Lymphocyte # 2.42 X10^3/ul (4.0); Lymphocyte % 26.1 % (19-41); Mean Corp Hgb Conc 33.6 g/dL (32-36); Mean Corpuscular Hgb 29.8 pg (27.0-32.0); Mean Corpuscular Volume 88.8 fL (80-94); Mean Platelet Vol. 8.9 fl (6.2-12.0); Monocyte# 0.75 X10^3/uL; Monocyte% 8.1 % (0-10); NRBC Flagged by Analyzer 0 % (0-5); Neutrophil # 4.77 X10^3/uL (2.7-7.7); Neutrophil % 51.4 % (47-70); Platelet Count 311 K/mm3 (150-450); RBC Distribution Width CV 13.5 % (11.6-14.6); RBC Distribution Width SD 43.9 fl (35.1-43.9); Red Blood Count 4.29 M/mm3 (4.6-6.2); White Blood Count 9.3 K/mm3 (4.4-11.0)
[2019-05-09 07:23] LABS: Anion Gap 5 (5-15); BUN 11 mg/dL (7-18); BUN/Creat Ratio 15.8 RATIO (10-20); Calcium,Total 8.3 mg/dL (8.5-10.1); Chloride 105 mmol/L (98-107); EST Glomerular Filtration Rate 137 mL/min (>60); Est Glom Filt Rate - Afr Amer 166 mL/min (>60); Estimated Creatinine Clearance 141.75 ml/min; Glucose 89 mg/dL (74-106); Potassium 3.9 mmol/L (3.5-5.1); Sodium Level 138 mmol/L (136-145)
[2019-05-09 07:27] LABS: Vancomycin, Trough Level 22.2 ug/mL (5.0-15.0)
[2019-05-09 09:00] VITALS: BP 115/75; PULSE 87; RESP 18; TEMP 35.7; O2SAT 98
--- NOTE | 2019-05-09 10:15 | NURSING ---
wound photo: right lateral face
[2019-05-09] MEDS: Famotidine 20 MG Tablet PO (10:25)
--- NOTE | 2019-05-09 10:38 | DCINST_ITS ---
- Discharge Diagnoses Current Active Problems: Current Active and Chronic Problems (This Medical Record has been edited. Action required.) Right facial abscess with cellulitis (Acute) History of polysubstance use (Chronic) Dental caries (Chronic) MRSA (methicillin resistant staph aureus) culture positive (Acute) You will use the following diet at home:: No restrictions Call your doctor if your incision/area has: Continuous Slow Oozing, Increased Pain/ Swelling, Increased Redness Call your doctor if you observe: Fever of 101 or Higher Cleanse incision/area with: Soap & Water, Keep Dressing Clean & Dry Allergies/Adverse Reactions: Allergies venom-honey bee [bee venom (honey bee)] Allergy (Verified 05/06/19 20:22) Anaphylaxis Medications to take at Discharge Acetaminophen 2 tab PO TID PRN #30 tablet 05/09/19 Ibuprofen 2 - 3 mg PO Q6H PRN #30 tablet 05/09/19 Smz/Tmp Ds [Bactrim Ds] 1 tab PO BID #12 tab 05/09/19 The following prescriptions were given: Acetaminophen 2 tab PO TID PRN #30 tablet PRN Reason: pain 1-11/18 Smz/Tmp Ds [Bactrim Ds] 1 tab PO BID #12 tab Transmission Status: Pending to [facility] Ibuprofen 2 - 3 mg PO Q6H PRN #30 tablet PRN Reason: pain 1-11/18 Primary Care Physician: Care Physician,No Primary [Primary Care Provider] - Test Results: Test results from this visit will be discussed in further detail at your follow- up appointment, if applicable. Please Follow Up With: Celio Kelly MD - ENT When: 2 weeks if needed Please Follow Up With: Angela Otto MD When: 1-2 weeks. PCP, call for appointment Proposed Discharge Date: 05/09/19
--- NOTE | 2019-05-09 10:42 | PCM.DC.SUM ---
Discharge Date and Diagnosis - Problem List Patient Problems: Active and Suspected Problems (This Medical Record has been edited. Action required.) Right facial abscess with cellulitis (Acute) MRSA (methicillin resistant staph aureus) culture positive (Acute) Date of Admission: 05/06/19 Date of Discharge: 05/09/19 - Primary Discharge Diagnosis Active and Suspected Problems (This Medical Record has been edited. Action required.) Right facial abscess with cellulitis (Acute) MRSA (methicillin resistant staph aureus) culture positive (Acute) - Secondary Discharge Diagnosis Chronic Problems (This Medical Record has been edited. Action required.) History of polysubstance use (Chronic) Dental caries (Chronic) Hospital Course and Treatment Imaging Results: Clinical Impression(s) from Imaging Studies Facial/Sinus 05/06/19 20:47 IMPRESSION: Diffuse cellulitis in association with large multi septated abscess in the right facial soft tissues lateral to the zygomatic arch extending superiorly and inferiorly with associated inflammatory adenopathy.. No evidence for associated osteomyelitis. Electronically Signed: Itz Pate MD at 22:05 EDT , Service support , Chest X-Ray 05/06/19 21:00 IMPRESSION: No acute cardiopulmonary pathology Electronically Signed: Itz Pate MD at 21:10 EDT , Service support , Consultations 05/07/19 01:39 Consult: Onc/Wound/brokerage manager Routine Comment: Reason for Consult:: right facial wound Operations: None Summary of Care Provided: The patient is a 33 year old M presents with right facial swelling. Patient had a CAT scan that showed some abscesses. ENT is contacted but advised continuation with the antibiotics. Eventually, the abscesses started to drain externally. Patient's facial swelling has improved. Currently, patient still has some erythema and purulent lesions but overall improved per the patient. Patient will be discharged home. Patient advised to inform the physician if he has worsening symptoms such as increased facial swelling or erythema. Patient given information to follow-up with Dr. Kelly as outpatient as needed and follow-up with primary care physician in the next coming weeks. [] Patient Problems: Active and Suspected Problems (This Medical Record has been edited. Action required.) Right facial abscess with cellulitis (Acute) MRSA (methicillin resistant staph aureus) culture positive (Acute) - Physical Exam Vitals/I&O's: Vital Signs Temp Pulse Resp BP Pulse Ox 35.7 C L 87 18 115/75 98 05/09/19 09:00 05/09/19 09:00 05/09/19 09:00 05/09/19 09:00 05/09/19 09:00 Oxygen Delivery Method Room Air Weight: 67.4 kg Body Mass Index (BMI) 21.3 Intake and Output for Last 24 Hours 05/07/19 05/08/19 05/09/19 23:59 23:59 23:59 Intake Total 4884.25 / 4884.25 165. 1700 / 170 Output Total 525 / 525 Balance 4359.25 / 4359.25 165. 1700 / 1700 General: Alert, No apparent distress HEENT: - - Erythema over the right anabaptist with purulent lesions actively oozing pus. Oral: Moist Mucosa, No Gingival or Mucosal Lesions/ Ulcerations Psych/Mental Status: Normal Affect, Appropriate Microbiology Past 72 Hours 05/06/19 23:10 Wound - Face Gram Stain - Final 05/06/19 23:10 Wound - Face Wound Culture - Final Meth. resistant Staph. aureus 05/06/19 21:09 Blood Culture (Wb) - Anticubital Right Blood Culture - Preliminary No growth in 48 hours. 05/06/19 20:59 Blood Culture (Wb) - Anticubital Left Blood Culture - Preliminary No growth in 48 hours. Laboratory Results 05/06/19 20:50: Hepatitis A IgM Ab Positive H, Hep Bs Antigen Negative, Hep B Core IgM Ab Negative, Hepatitis C Ab (EIA) 0.1 05/09/19 06:30: Vancomycin Trough 22.2 H 05/09/19 06:30: WBC 9.3, RBC 4.29 L, Hgb 12.8 L, Hct 38.1 L, MCV 88.8, MCH 29.8, MCHC 33.6, RDW Std Deviation 43.9, RDW Coeff of Sedrick 13.5, Plt Count 311, MPV 8.9, Immature Gran % (Auto) 0.400, Neut % (Auto) 51.4, Lymph % (Auto) 26.1, [place] % (Auto) 8.1, Eos % (Auto) 12.6 H, Baso % (Auto) 1.4 H, Absolute Neuts (auto) 4.8, Absolute Lymphs (auto) 2.42, Nucleated RBC % 0 05/09/19 06:30: Sodium 138, Potassium 3.9, Chloride 105, Carbon Dioxide 28.0, Anion Gap 5, BUN 11, Creatinine 0.70, Estim Creat Clear Calc 141.75, Est GFR (MDRD) Af Amer 166, Est GFR (MDRD) Non-Af 137, BUN/Creatinine Ratio 15.8, Glucose 89, Calcium 8.3 L Current Medications Acetaminophen (Tylenol) 650 mg PO Q6H PRN PRN PRN Reason: Pain Score 1-10/Temp > 100.7 F Last Admin: 05/08/19 15:15 Dose: 650 mg Documented by: Al Hydroxide/Mg Hydroxide (Mylanta Ii) 30 ml PO Q6H PRN PRN PRN Reason: Gastric Burning Dextrose (D50w Syringe) 0 gm IV X1 PRN; Protocol PRN Reason: Hypoglycemia Enoxaparin Sodium (Lovenox) 40 mg SC DAILY [facility] Last Admin: 05/09/19 10:23 Dose: Not Given Documented by: Famotidine (Pepcid) 20 mg PO DAILY [facility] Last Admin: 05/09/19 10:25 Dose: 20 mg Documented by: Glucagon () 1 mg IM .X1 PRN PRN Reason: Hypoglycemia Piperacillin Sod/Tazobactam (Sod 3.375 gm/ Sodium Chloride) 50 mls @ 12.5 mls/hr IV Q8 [facility] Last Admin: 05/09/19 06:40 Dose: 12.5 mls/hr Documented by: Vancomycin IV Pharmacy to Dose (1 ea/ Sodium Chloride) 500 mls @ 250 mls/hr IV X1 PRN; Protocol PRN Reason: Rx to Dose Sodium Chloride () 250 mls @ 15 mls/hr IV .[id number] PRN PRN Reason: Saline Flush Last Infusion: 05/08/19 17:57 Dose: 15 mls/hr Documented by: Vancomycin HCl 1,500 mg/ (Sodium Chloride) 530 mls @ 250 mls/hr IV Q8H [facility] Last Infusion: 05/09/19 08:49 Dose: Infused Documented by: Melatonin (Melatonin) 3 mg PO QHS PRN PRN PRN Reason: INSOMNIA Last Admin: 05/08/19 22:15 Dose: 3 mg Documented by: Morphine Sulfate () 2 mg IV Q3H PRN PRN PRN Reason: Pain Score 6-10/10 Nitroglycerin (Nitrostat) 0.4 mg SUBLINGUAL Q5M PRN PRN Reason: CARDIAC/CHEST PAIN Nutritional Formula (Lactose Free) (Ensure Enlive) 120 ml PO 4X/DAY [facility] Last Admin: 05/09/19 10:23 Dose: 120 ml Documented by: Ondansetron HCl (Zofran) 4 mg IV Q8H PRN PRN PRN Reason: NAUSEA/VOMITING Oxycodone HCl (Oxyir) 5 mg PO Q4H PRN PRN PRN Reason: Pain Score 4-5/10 Last Admin: 05/09/19 06:50 Dose: 5 mg Documented by: Prochlorperazine Edisylate (Compazine Iv) 5 mg IV Q4H PRN PRN PRN Reason: Breakthrough Nausea/Vomiting Senna/Docusate Sodium (Senokot-S, Susanne-Colace) 2 tablet PO BID PRN PRN PRN Reason: Constipation Sodium Chloride () 10 - 40 ml IV UD PRN PRN Reason: SALINE FLUSH Last Admin: 05/08/19 15:15 Dose: 20 ml Documented by: Discharge Diet: No Restrictions Call your doctor if your incision/area has: Continuous Slow Oozing, Increased Pain/ Swelling, Increased Redness Call your doctor if you observe: Fever of 101 or Higher Cleanse incision/area with: Soap & Water, Keep Dressing Clean & Dry Home Medications: Medications to take at Discharge Acetaminophen 2 tab PO TID PRN #30 tablet 05/09/19 Ibuprofen 2 - 3 mg PO Q6H PRN #30 tablet 05/09/19 Smz/Tmp Ds [Bactrim Ds] 1 tab PO BID #12 tab 05/09/19 Following Prescrptions Were Given to Patient: Acetaminophen 2 tab PO TID PRN #30 tablet PRN Reason: pain 1-10/10 Smz/Tmp Ds [Bactrim Ds] 1 tab PO BID #12 tab Transmission Status: Pending to [facility] [employer] #30 Ibuprofen 2 - 3 mg PO Q6H PRN #30 tablet PRN Reason: pain 1-11/18 Primary Care Physician: Care Physician,No Primary [Primary Care Provider] - Please Follow Up With: Celio Kelly MD - ENT When: 2 weeks if needed Please Follow Up With: Angela Otto MD When: 1-2 weeks. PCP, call for appointment Disposition: Home Minutes spent on discharge:: 32 Patient Condition:: Good Medical Necessity - Tobacco Use Smoking Status: Current every day smoker Tobacco Use: Cigarettes Meaningful Use Info Meaningful Use Diagnoses (Choose all that apply): None applicable Inpatient E&M: 51743 [facility]
[2019-05-09 12:20] VITALS: BP 115/75; PULSE 87; RESP 18; TEMP 35.7; O2SAT 98
== END 2019-05-09 12:28 | disposition home or self-care (01) | DRG 710 ==
LOC: ED 20:54 → PCU 05-07 00:19
PROVIDERS: Student in an Organized Health Care Education/Training Program; Admitting Provider Internal Medicine; Emergency Provider Emergency Medicine
DX: A41.9 Sepsis, unspecified organism (principal); L02.01 Cutaneous abscess of face; L03.211 Cellulitis of face; K02.9 Dental caries, unspecified; F17.210 Nicotine dependence, cigarettes, uncomplicated; B95.62 Methicillin resistant Staphylococcus aureus infection as the cause of diseases classified elsewhere
CPT/HCPCS: 36415; 70487; 71045; 80048; 80053; 80074; 80202; 80307; 81001; 83605; 83735; 85025; 85610; 85730; 86703; 87040; 87070; 87077; 87186; 87205; 87640; 87641; 93005; 99285; 99406; J7030; J7040; J7050; Q9967; A4216; J0295

== ENCOUNTER 2019-11-13 08:01 | Emergency (ER) | payer MEDICAID, SELFPAY ==
[2019-05-06 23:55] VITALS: BMI 21.3
[2019-11-13] VITALS (7 sets, daily range): BP systolic 105–153; BP diastolic 63–103; PULSE 74–103; RESP 14–16; TEMP 36.4–36.7; O2SAT 96–100; BMI 20.2
--- NOTE | 2019-11-13 08:16 | CT_ITS ---
STUDY: CT FACIAL BONES WITH CONTRAST REASON FOR EXAM: Male, 34 years old. SWELLING/ABSCESS RIGHT JAW -- FALL INJURY X3 WEEKS AGO RADIATION DOSAGE (If Supplied By Facility): CTDIvol = ( 29.38 ) mGy, DLP = ( 797.22 ) mGycm TECHNIQUE: The patient was scanned in a multi detector CT scanner. Transaxial imaging was performed following the intravenous administration of IV 100mL Isovue-300. Sagittal and coronal images were reconstructed. Individualized dose optimization techniques were used for this CT. COMPARISON: None. FINDINGS: Dental Abigail of the right lower third molar with surrounding radicular cyst and destruction of the lateral cortex of the mandible consistent with dental disease and osteomyelitis. Furthermore, there is associated enlargement of the right masseter muscle, particularly superficially which contains a 2.5 cm thick-walled fluid collection in the inferior aspect of the mass are consistent with an abscess. This is associated with stranding of surrounding fat and asymmetry of the soft tissues. Normal orbital herring and orbital contents. Normal nasal bones and anterior nasal spine. Normal facial bones. There is no demonstrated fracture. Mucous retention cyst floor the right maxillary sinus consistent with chronic sinusitis. CT/Sinus/Facial Bone WITH Contras IMPRESSION: Dental disease of the right lower third molar with osteomyelitis of the mandible and marked enlargement of the right masseter muscle which contains a 2.5 cm abscess. Electronically Signed: Bonifacio Campbell MD at 10:03 EDT Tel , Service support ,
--- NOTE | 2019-11-13 08:18 | ED.VISSUMM ---
- ER Visit Summary Date of Service: 11/13/19 Chief Complaint: Facial swelling History of Present Illness: The patient is a 34 M with no primary care physician or dentist. Reports that 1 to 2 weeks ago he tripped over a curb and hit the right mandible on a sidewalk. He reports that he lost his right mandibular third filling. States has had swelling since that day. He has not been seen. Reports that the swelling has gradually increased. He had drainage from his right mandibular third tooth 2 days ago. He has not had any drainage since then. He does complain of subjective fever and sweats. He has a little cough that is productive of clear sputum without blood. He reports he is been nausea and vomited once yesterday. No blood in his emesis. He has a headache that 7 out of 10 in severity. Patient complains of dental pain that is 10 on 10 at worst he is pain-free currently. Is worsened by eating. Is relieved by NSAIDs. Physical Examination: Vitals: Stable. Afebrile. Mouth: No trismus. No edema of the floor of the mouth. Pain with percussion of right mandibular third molar. There are obvious caries and a filling that is absent. He has moderate right facial swelling. There is no erythema. There is no edema beneath his tongue. The swelling does not extend into his neck. General: A&O x 3. NAD. Cardiovascular exam: Regular rate and rhythm, no murmur, rub or gallop. Respiratory exam: Clear to auscultation bilaterally. No wheezes or stridor. Abdominal exam: Soft, nontender, nondistended, normal bowel sounds. No peritoneal signs. Extremity: No clubbing, cyanosis, or edema. Test Results: CBC shows a white count of 12.6 with 11 monocytes and 6 eosinophils. H&H is 10.9 35.3. Chem-7 shows a CO2 of 33 and creatinine is 0.58. Clinical Impression(s) from Imaging Studies Facial/Sinus 11/13/19 08:16 IMPRESSION: Dental disease of the right lower third molar with osteomyelitis of the mandible and marked enlargement of the right masseter muscle which contains a 2.5 cm abscess. Electronically Signed: Bonifacio Campbell MD at 10:03 EDT Tel , Service support , Emergency Department Course and Treatment: Patient had an IV placed. He was given Unasyn and clindamycin IV. He is resting comfortably. Treatment Plan: I do not have an oral surgeon vocational childcare teacher. The patient asked for transfer to [place]. He was discussed with [facility] be transferred for further evaluation and treatment. Disposition: When the squad arrived to transport the patient to [facility] he refused to be transported because my girlfriend cannot ride with this. He will be signed out AGAINST MEDICAL ADVICE. Patient is instructed to go to [facility] soon as possible for further evaluation and treatment. He assures me that he is going to drive up there. However, I question whether he will and he will be signed out AGAINST MEDICAL ADVICE. Impression: 1. Right mandibular dental abscess. 2. Mandibular osteomyelitis. 3. Left AMA. This note was generated with [employer] dictation software. It may contain incorrect words, spelling, and punctuation that were not noted in review of the chart prior to signing ED Disposition - Plan for ED Patient: Instructions: ED ABSCESS DENTAL Prescriptions: Clindamycin HCl [Cleocin] 300 mg PO Q6H #40 capsule Referrals: Dentist,Your [STAFF PHYSICIAN] - As soon as possible Additional Instructions: Go to [facility] as soon as possible. You need to have surgery for this dental abscesses that involves the bone.
[2019-11-13 08:34] LABS: Absolute Lymphocyte Count 2.96 X10^3/uL (0.83-4.51); Absolute Neutrophil Count 7.5 X10^3/uL (2.0-7.7); Basophil# 0.05 X10^3/uL; Basophil% 0.4 % (0-1); Eosinophil# 0.74 X10^3/uL; Eosinophils% 5.9 % (0-5); Hematocrit 35.3 % (40-54); Hemoglobin 10.9 g/dL (13.0-16.5); Lymphocyte # 2.96 X10^3/ul (4.0); Lymphocyte % 23.5 % (19-41); Mean Corp Hgb Conc 30.9 g/dL (32-36); Mean Corpuscular Hgb 28.9 pg (27.0-32.0); Mean Corpuscular Volume 93.6 fL (80-94); Mean Platelet Vol. 8.9 fl (6.2-12.0); Monocyte# 1.34 X10^3/uL; Monocyte% 10.7 % (0-10); NRBC Flagged by Analyzer 0 % (0-5); Neutrophil # 7.47 X10^3/uL (2.7-7.7); Neutrophil % 59.3 % (47-70); Platelet Count 289 K/mm3 (150-450); RBC Distribution Width CV 12.5 % (11.6-14.6); RBC Distribution Width SD 43.1 fl (35.1-43.9); Red Blood Count 3.77 M/mm3 (4.6-6.2); White Blood Count 12.6 K/mm3 (4.4-11.0)
[2019-11-13 08:58] LABS: Anion Gap 2 (5-15); BUN 15 mg/dL (7-18); Calcium,Total 8.6 mg/dL (8.5-10.1); Chloride 103 mmol/L (98-107); Creatinine, Serum 0.58 mg/dL (0.70-1.30); EST Glomerular Filtration Rate 170 mL/min (>60); Est Glom Filt Rate - Afr Amer 206 mL/min (>60); Estimated Creatinine Clearance 165.37 ml/min; Glucose 94 mg/dL (74-106); Potassium 3.6 mmol/L (3.5-5.1); Sodium Level 138 mmol/L (136-145)
--- NOTE | 2019-11-13 13:25 | ED.RN ---
[facility] HERE TO GET PATIENT. AFTER BEING TOLD HIS GIRLFRIEND COULD NOT RIDE ON [facility]QU[facility], PATIENT REFUSED TO BE TRANSFERED. DR. MUKHERJEE TO BEDSIDE. PATIENT TO SIGN AND AMA FORM.
== END 2019-11-13 13:40 | disposition home or self-care (01) ==
PROVIDERS: Emergency Provider Emergency Medicine
DX: M27.2 Inflammatory conditions of jaws (principal); K04.7 Periapical abscess without sinus; Z53.21 Procedure and treatment not carried out due to patient leaving prior to being seen by health care provider; R05 Cough; F17.200 Nicotine dependence, unspecified, uncomplicated
CPT/HCPCS: 70487; 80048; 85025; 96365; 96367; 99284; J7050; Q9967; A4216; J0295

== ENCOUNTER 2020-09-10 23:42 | Emergency (ER) | payer MEDICAID, SELFPAY ==
[2019-11-13 08:03] VITALS: BMI 20.2
[2020-09-10 23:46] VITALS: BP 155/90; PULSE 115; RESP 14; TEMP 37.3; O2SAT 99; BMI 24.2
[2020-09-10] MEDS: Famotidine 20 MG Tablet PO (23:59)
--- NOTE | 2020-09-11 00:23 | EDS_ITS ---
HPI History of Present Illness Chief Complaint: Allergic Reaction Informant: patient Narrative Narrative: Patient is a 35-year-old previously healthy male who presents to the emergency department for anaphylactic allergic reaction. He states just prior to arrival he started to have significant facial swelling. He is feeling very short of breath. He denies new exposure. He has had this happen before in the past but never to this extent. He did call the ambulance. They treated him with epinephrine, Solu-Medrol, Benadryl. Patient denies any new medications. On arrival to the ED his face is very swollen but he states he is able to breathe a lot better at this time. He denies significant rash except for the redness of his face. He otherwise states he has been doing well. No recent illness including fever/chills or nausea/vomiting. No change in bowel movements. He denies any chest pain at this time. [facility] Medical History (Updated 09/11/20 @ 02:[address] Nixon Boudreaux DO) SVT (supraventricular tachycardia) Home Medications NK 09/10/20 [History Last Taken Unknown] prednisone 40 mg PO DAILY 4 Days #8 tab 09/11/20 [Rx Last Taken Unknown] Allergy/AdvReac Type Severity Reaction Status Date / Time venom-honey bee Allergy Anaphylaxis Verified 09/10/20 23:51 [bee venom (honey bee)] Social History Smoking Status: Current every day smoker tobacco type: cigarettes ROS ROS ED Constitutional Constitutional ED: Denies chills or fever(s) Eyes Eyes: Denies change in vision ENT ENT ED: Denies epistaxis or rhinorrhea Cardiovascular Cardiovascular: Denies chest pain or palpitations Respiratory/Chest Respiratory/Chest: Reports dyspnea; Denies cough Gastrointestinal Gastrointestinal: Denies abdominal pain, diarrhea, nausea or vomiting Musculoskeletal Musculoskeletal: Denies back pain or neck pain Integumentary Denies rash Neurologic Neurologic: Denies dizziness, headache(s) or weakness EXAM Physical Exam Const Vital Signs: 09/10/20 23:46 09/11/20 01:05 09/11/20 02:06 Temperature 99.1 F Temperature Source Temporal Pulse Rate 115 H 103 H 94 Respiratory Rate 14 14 16 Blood Pressure 155/90 H 118/77 121/79 H Blood Pressure Mean 111 90 93 Pulse Ox 99 96 99 Oxygen Delivery Method Room Air Room Air Room Air 09/11/20 03:45 Temperature Temperature Source Pulse Rate 84 Respiratory Rate 16 Blood Pressure 127/84 H Blood Pressure Mean Pulse Ox 98 Oxygen Delivery Method Positive well nourished and well developed General Appearance ED: well developed and NAD HEENT Reports moist mucous membranes HEENT Narrative: Significant swelling of face. Eyes are close to being swollen shut. No stridor appreciated. Eyes PERRL and EOMs intact bilaterally Neck supple General: Negative for tenderness Chest Wall inspection of chest normal Resp normal respiratory effort and clear to auscultation bilaterally Auscultation: Negative for rales, rhonchi or wheezes Cardio regular rhythm and no murmurs Rate: tachycardic GI normal to inspection, nondistended, normoactive bowel sounds and non-tender Palpation: soft; Negative for guarding or rebound tenderness present Extremity normal to inspection General Extremety ED: Negative for edema or tenderness General Extremity: Negative for edema Neuro oriented x3 Sensorium / Orientation: alert Motor Exam: strength 5/5 throughout Psych mental status grossly normal MDM MDM MDM Narrative Medical decision making narrative: Patient presents to emerge department for acute allergic reaction. He was anaphylactic and is getting better after EMS treatment. Only medication added at this time is famotidine. Patient will be observed in the emergency department to make sure he does have good resolution of symptoms. Patient monitored in the emergency department for over 3 hours. He is feeling much better on reexamination. He is sleeping comfortably. His swelling has decreased. Still some swelling around his eyes. He does feel comfortable going home at this time. I did write him a prescription for prednisone. He can continue to use Benadryl as needed. Return precautions are reviewed with him including any difficulty breathing, worsening swelling. He otherwise is to follow-up with his PCP. He understands and is agreeable with this plan. All questions are answered. Discharge Plan Triage Chief Complaint: Allergic Reaction ED Provider: Nixon Boudreaux Dx/Rx/DC Orders Clinical Impression: Allergic reaction Instructions: ED Anaphylaxis Prescriptions: New prednisone 20 mg tablet 40 mg PO DAILY 4 Days Qty: 8 RF: 0 No Action NK RF: 0 Primary Care Provider: Care Physician,No Primary Referrals: Care Physician,No Primary [Primary Care Provider] - 2 Days Disposition Disposition: Home, Self Care Discharge Date/Time: 09/11/20 03:45
[2020-09-11 01:05] VITALS: BP 118/77; PULSE 103; RESP 14; O2SAT 96
[2020-09-11 02:06] VITALS: BP 121/79; PULSE 94; RESP 16; O2SAT 99
[2020-09-11 03:45] VITALS: BP 127/84; PULSE 84; RESP 16; O2SAT 98
== END 2020-09-11 03:45 | disposition home or self-care (01) ==
PROVIDERS: Emergency Provider Emergency Medicine
DX: T78.2XXA Anaphylactic shock, unspecified, initial encounter (principal); F17.210 Nicotine dependence, cigarettes, uncomplicated
CPT/HCPCS: 99284

== ENCOUNTER 2020-10-04 13:22 | Emergency (ER) | payer MEDICAID, SELFPAY ==
[2020-10-04 13:23] VITALS: BP 160/89; PULSE 121; RESP 15; TEMP 37.7; O2SAT 97; BMI 21.4
[2020-10-04 13:27] VITALS: BP 160/89; PULSE 121; RESP 15; TEMP 37.7; O2SAT 97
[2020-10-04] MEDS: MethylPREDNISolone 125 MG/2 ML Vial IV (14:05)
[2020-10-04 14:06] VITALS: O2SAT 100
[2020-10-04 14:23] LABS: Absolute Lymphocyte Count 4.41 X10^3/uL (0.83-4.51); Absolute Neutrophil Count 4.3 X10^3/uL (2.0-7.7); Basophil# 0.06 X10^3/uL; Basophil% 0.6 % (0-1); Eosinophil# 0.22 X10^3/uL; Eosinophils% 2.3 % (0-5); Hematocrit 38.6 % (40-54); Hemoglobin 12.1 g/dL (13.0-16.5); Lymphocyte # 4.41 X10^3/ul (0.83-4.51); Lymphocyte % 45.6 % (19-41); Mean Corp Hgb Conc 31.3 g/dL (32-36); Mean Corpuscular Hgb 28.1 pg (27.0-32.0); Mean Corpuscular Volume 89.6 fL (80-94); Mean Platelet Vol. 9.3 fl (6.2-12.0); Monocyte# 0.64 X10^3/uL; Monocyte% 6.6 % (0-10); NRBC Flagged by Analyzer 0 % (0-5); Neutrophil # 4.32 X10^3/uL (2.7-7.7); Neutrophil % 44.7 % (47-70); Platelet Count 492 K/mm3 (150-450); RBC Distribution Width CV 13.2 % (11.6-14.6); RBC Distribution Width SD 43.5 fl (35.1-43.9); Red Blood Count 4.31 M/mm3 (4.6-6.2); White Blood Count 9.7 K/mm3 (4.4-11.0)
[2020-10-04 14:28] LABS: ALB/GLOB Ratio 0.6 RATIO (0.9-2.4); AST(SGOT) 13 U/L (15-37); Alanine Aminotransfer ALT/SGPT 32 U/L (16-61); Albumin, Serum 3.1 g/dL (3.2-5.0); Alkaline Phosphatase 171 U/L (45-117); Anion Gap 3 (5-15); BUN 15 mg/dL (7-18); BUN/Creat Ratio 18.8 RATIO (10-20); Chloride 104 mmol/L (98-107); EST Glomerular Filtration Rate 117 mL/min (>60); Est Glom Filt Rate - Afr Amer 141 mL/min (>60); Estimated Creatinine Clearance 122.42 ml/min; Globulin 5.4 g/dL (2.2-4.2); Glucose 136 mg/dL (74-106); Potassium 3.8 mmol/L (3.5-5.1); Protein, Total 8.5 g/dL (6.4-8.2); Sodium Level 138 mmol/L (136-145)
[2020-10-04 14:30] LABS: Lactic Acid 1.1 mmol/L (0.4-1.9)
--- NOTE | 2020-10-04 14:43 | EX.ED.DYSGE1 ---
HPI History of Present Illness Chief Complaint: Allergic Reaction Informant: patient Narrative Narrative: Patient is a 35-year-old male with a past medical history of polysubstance abuse who presents to the emergency department for allergic reaction. He states he did use heroin earlier today. Just prior to arrival he started to have swelling of his mouth, lips. He has had this before in the past. He does not know of any new exposures. He was treated with Benadryl and epinephrine by EMS. He feels like he has not gotten significant improvement but does not feel like it is worsening anymore. He denies any rash elsewhere. No itching. No significant shortness of breath. Patient also has an abscess to right forearm where he injects out. He denies fevers or chills. Patient was seen previously in the emergency department in 2019 for jaw osteomyelitis and signed out AGAINST MEDICAL ADVICE prior to treatment. [facility] Medical History (Updated 10/04/20 @ 15:[address] Nixon Boudreaux DO) SVT (supraventricular tachycardia) Home Medications cephalexin 500 mg PO Q6H 7 Days #28 cap 10/04/20 [Rx Last Taken Unknown] prednisone 40 mg PO DAILY 3 Days #6 tab 10/04/20 [Rx Last Taken Unknown] sulfamethoxazole-trimethoprim [Bactrim DS] 1 tab PO BID 7 Days #14 tab 10/04/20 [Rx Last Taken Unknown] Allergy/AdvReac Type Severity Reaction Status Date / Time venom-honey bee Allergy Anaphylaxis Verified 09/10/20 23:51 [bee venom (honey bee)] Social History Smoking Status: Current every day smoker tobacco type: cigarettes ROS ROS ED Constitutional Constitutional ED: Denies chills or fever(s) Eyes Eyes: Denies change in vision ENT ENT ED: Denies epistaxis or rhinorrhea Cardiovascular Cardiovascular: Reports other; Denies chest pain or palpitations Respiratory/Chest Respiratory/Chest: Reports dyspnea; Denies cough Gastrointestinal Gastrointestinal: Denies abdominal pain, diarrhea, nausea or vomiting Musculoskeletal Musculoskeletal: Denies back pain or neck pain Integumentary Reports abscess Neurologic Neurologic: Denies dizziness, headache(s) or weakness Allergic/Immunologic Allergic/Immunologic ED: Reports mouth swelling and tongue swelling EXAM Physical Exam Const Vital Signs: 10/04/20 13:23 10/04/20 13:27 10/04/20 14:06 Temperature 99.8 F H 99.8 F H Temperature Source Oral Oral Pulse Rate 121 H 121 H Respiratory Rate 15 15 Blood Pressure 160/89 H 160/89 H Blood Pressure Mean 112 112 Pulse Ox 97 97 100 Oxygen Delivery Method Room Air Room Air Nasal Cannula Oxygen Flow Rate (L/min) 2 10/04/20 15:17 Temperature 97.6 F L Temperature Source Temporal Pulse Rate 95 Respiratory Rate 12 Blood Pressure 128/89 H Blood Pressure Mean 102 Pulse Ox 100 Oxygen Delivery Method Nasal Cannula Oxygen Flow Rate (L/min) 2 Positive well nourished and well developed General Appearance ED: well developed HEENT Reports head/scalp atraumatic HEENT Narrative: Swelling of lips as well as tongue. No stridor. No evidence of Barby's angina. Patient is able to handle his secretions. Eyes PERRL and EOMs intact bilaterally Neck supple General: Negative for tenderness Chest Wall inspection of chest normal Resp normal respiratory effort and clear to auscultation bilaterally Auscultation: Negative for rales, rhonchi or wheezes Cardio regular rate, regular rhythm and no murmurs GI normal to inspection, nondistended, normoactive bowel sounds and non-tender Palpation: soft; Negative for guarding or rebound tenderness present Neuro no sensory deficits noted Sensorium / Orientation: alert Motor Exam: strength 5/5 throughout Psych mental status grossly normal Skin Skin Narrative: Large abscess to right forearm. There is overlying erythema, warmth and tenderness. MDM MDM MDM Narrative Medical decision making narrative: Patient presents to the emergency department for allergic reaction to unknown trigger. Patient did receive epi and Benadryl prior to arrival. He is given a dose of Solu-Medrol. With the large abscess, tachycardia basic lab work is being obtained. Patient's lab work did not reveal a high white blood cell count. His lactic acid is within normal limits. Patient had a verbal consent for the drainage of the abscess. This was drained and packed. He will be placed on oral antibiotics given the extent of the abscess. He is also given a prescription for prednisone. Did offer hospitalization to detox but patient states that he does not want to do this at this time. Patient will be observed here in the emergency department and discharged home. He is given a prescription for Bactrim, Keflex as well as prednisone for the allergic reaction. He otherwise has remained stable throughout ED stay. He understands and is agreeable this plan. All questions were answered.\ Procedure: Abscess I&D. Verbal consent obtained. Risks and benefits were discussed. The area was cleaned using alcohol. Using 3 cc of 1% lidocaine with epinephrine the area was anesthetized. A 0.5 cm linear incision was made. A large amount of purulent/bloody discharge was obtained. The area was packed with approximately 5 inches of 0.5inch gauze. Area was dressed. He tolerated the procedure well without any apparent complication. Lab Data Labs: Laboratory Results - last 24 hr 10/04/20 10/04/20 10/04/20 13:30 13:30 13:30 WBC 9.7 RBC 4.31 L Hgb 12.1 L Hct 38.6 L MCV 89.6 MCH 28.1 MCHC 31.3 L RDW Std Deviation 43.5 RDW Coeff of Sedrick 13.2 Plt Count 492 H MPV 9.3 Immature Gran % (Auto) 0.200 Neut % (Auto) 44.7 L Lymph % (Auto) 45.6 H [place] % (Auto) 6.6 Eos % (Auto) 2.3 Baso % (Auto) 0.6 Absolute Neuts (auto) 4.3 Absolute Lymphs (auto) 4.41 Nucleated RBC % 0 Sodium 138 Potassium 3.8 Chloride 104 Carbon Dioxide 31.0 Anion Gap 3 L BUN 15 Creatinine 0.80 Estim Creat Clear Calc 122.42 Est GFR (MDRD) Af Amer 141 Est GFR (MDRD) Non-Af 117 BUN/Creatinine Ratio 18.8 Glucose 136 H Lactic Acid 1.1 Calcium 9.0 Total Bilirubin 0.30 AST 13 L ALT 32 Alkaline Phosphatase 171 H Total Protein 8.5 H Albumin 3.1 L Globulin 5.4 H Albumin/Globulin Ratio 0.6 L Discharge Plan Triage Chief Complaint: Allergic Reaction ED Provider: Nixon Boudreaux Dx/Rx/DC Orders Clinical Impression: Allergic reaction, Abscess of arm, Substance abuse Instructions: ED Abscess Incision And Drainage, ED Angioedema Prescriptions: New sulfamethoxazole-trimethoprim [Bactrim DS] 800-160 mg tablet 1 tab PO BID 7 Days Qty: 14 RF: 0 cephalexin 500 mg capsule 500 mg PO Q6H 7 Days Qty: 28 RF: 0 prednisone 20 mg tablet 40 mg PO DAILY 3 Days Qty: 6 RF: 0 Primary Care Provider: Care Physician,No Primary Referrals: Nette Norris DO [STAFF PHYSICIAN] - As soon as possible Care Physician,No Primary [Primary Care Provider] - Activity Restrictions/Additional Instructions: Packing will need to removed in 3 to 5 days. Disposition Disposition: Home, Self Care
[2020-10-04 15:17] VITALS: BP 128/89; PULSE 95; RESP 12; TEMP 36.4; O2SAT 100
[2020-10-04] MEDS: Lidocaine 1% /Epi 1:100 (20ml) 20 ML Vial 5 ML INFILT (15:37)
--- NOTE | 2020-10-04 16:38 | ED.RN ---
MD aware of pt drowsy at pr. pt denies there is anyone we can call for a ride. see vitals. extra dressing supplies sent with pt.
--- NOTE | 2020-10-04 16:39 | ED.RN ---
PD walking outside to check on pt.
[2020-10-04 16:40] VITALS: BP 115/75; PULSE 97; RESP 12; O2SAT 98
--- NOTE | 2020-10-08 06:47 | ED.RN ---
lab had called with positive blood culture results. spoke with Dr. Zarate about tests results. Dr. Zarate wanted nursing staff to call and check on patient condition and suggest return for admission for IV atx. At this time called and left message for patient to call in and speak to nursing staff about medical condition and suggestion of admission. will have day shift nursing staff to follow up with pateint later in the day
== END 2020-10-04 16:41 | disposition home or self-care (01) ==
PROVIDERS: Emergency Provider Emergency Medicine
DX: L02.413 Cutaneous abscess of right upper limb (principal); T78.40XA Allergy, unspecified, initial encounter; F19.10 Other psychoactive substance abuse, uncomplicated; F17.210 Nicotine dependence, cigarettes, uncomplicated
CPT/HCPCS: 10060; 36415; 80053; 83605; 85025; 87040; 87077; 96374; 99285; J7030; A4216

== ENCOUNTER 2020-10-15 17:29 | Emergency (ER) | payer MEDICAID, SELFPAY ==
[2020-10-15 17:30] VITALS: BP 114/68; PULSE 111; RESP 14; TEMP 36.9; O2SAT 83; BMI 25.0
[2020-10-15 17:35] VITALS: O2SAT 99
[2020-10-15 18:05] VITALS: BP 118/62; PULSE 86; RESP 12; O2SAT 96
--- NOTE | 2020-10-15 18:19 | NURSING ---
1745-pt brought in by squad. pt on nonrebreather. does not offer much except head yes and no. no swelling noted to tongue but pt lethargic seeming. hr 117 after epi frim squad. pt skin reddened with numerous scabbed track pérez over arms. spo2 97% at this time. continue to monitor
--- NOTE | 2020-10-15 18:28 | EX.ED.DYSGE1 ---
HPI History of Present Illness Chief Complaint: Allergic Reaction Informant: EMS Narrative Narrative: Reportedly the patient is allergic to bees. EMS was called and they administered Benadryl and epinephrine because the patient's face was swelling and he was reporting shortness of breath. Patient cannot tell me anything as he appears to be sleeping. I see a history of polysubstance drug abuse. [facility] Medical History SVT (supraventricular tachycardia) unable to obtain Home Medications epinephrine [EpiPen 2-Shun] 0.3 mg IM Q10M PRN PRN #2 ea 10/15/20 [Rx Last Taken Unknown] prednisone 60 mg PO DAILY #15 tablet 10/15/20 [Rx Last Taken Unknown] Allergy/AdvReac Type Severity Reaction Status Date / Time venom-honey bee Allergy Anaphylaxis Verified 09/10/20 23:51 [bee venom (honey bee)] unable to obtain Social History (Updated 10/15/20 @ 18:[address] Jewel Ortiz DO) Smoking Status: Current every day smoker tobacco type: cigarettes substance use type: other details: History of polysubstance drug use ROS ROS ED Review of Systems ROS Unobtainable: due to mental status EXAM Physical Exam Const Vital Signs: 10/15/20 17:30 10/15/20 17:35 10/15/20 18:05 Temperature 98.4 F Temperature Source Oral Pulse Rate 111 H 86 Respiratory Rate 14 12 Blood Pressure 114/68 118/62 Blood Pressure Mean 83 80 Pulse Ox 83 99 96 Oxygen Delivery Method Room Air Non-Rebreather Room Air Oxygen Flow Rate (L/min) 15 10/15/20 19:15 10/15/20 20:00 Temperature Temperature Source Pulse Rate 105 H 96 Respiratory Rate 15 15 Blood Pressure 144/98 H 151/98 H Blood Pressure Mean 113 115 Pulse Ox 100 100 Oxygen Delivery Method Room Air Room Air Oxygen Flow Rate (L/min) Positive well nourished and well developed General Appearance ED: well developed HEENT Reports normocephalic, head/scalp atraumatic, TM's clear and moist mucous membranes HEENT Narrative: Patient has thick yellow drainage from his nose into his face mask. Tympanic Membrane ED: Yes TM's clear Eyes EOMs intact bilaterally Eyes Narrative: Pupils are 2 mm bilaterally he has periorbital swelling. Neck no lymphadenopathy, supple and no JVD Resp normal respiratory effort and clear to auscultation bilaterally Cardio regular rate, regular rhythm and no murmurs GI normal to inspection, nondistended, normoactive bowel sounds and non-tender Palpation: soft Back/Spine no CVA tenderness and normal ROM Extremity normal to inspection General Extremety ED: Negative for edema General Extremity: Negative for edema Neuro Neuro Narrative: Patient is a lethargic he does not speak he does not participate in the exam Sensorium / Orientation: lethargic Skin no rashes or lesions noted Skin Narrative: There appears to be signs of IV drug use on the extremity arms MDM MDM MDM Narrative Medical decision making narrative: There was significant concern regarding opiate overdose. He received Narcan and was much more alert. Patient was observed for just over 3 hours. During which time he stooled his pants and was able to clean himself up. Patient will prescribed a EpiPen as well as some prednisone. He should follow-up with 180 for the drug addiction and primary care for his healthcare needs. Discharge Plan Triage Chief Complaint: Allergic Reaction ED Provider: Jewel Ortiz Dx/Rx/DC Orders Clinical Impression: Anaphylactic reaction to bee sting, Opiate overdose Instructions: ED BEE STING General Allergic Rxn Prescriptions: New prednisone 20 MG tablet 60 mg PO DAILY Qty: 15 RF: 0 epinephrine [EpiPen 2-Shun] 0.3 mg/0.3 mL auto-injector 0.3 mg IM Q10M PRN PRN (Reason: anaphylaxis) Qty: 2 RF: 0 Primary Care Provider: Care Physician,No Primary Referrals: Zaire Clemente Chi, MD [COURTESY STAFF PHYSICIAN] - As soon as possible (for primary care ) Care Physician,No Primary [Primary Care Provider] - [facility] [STAFF PHYSICIAN] - As soon as possible (for drug rehab) Disposition Disposition: Home, Self Care
[2020-10-15] MEDS: MethylPREDNISolone 125 MG/2 ML Vial IV (18:36)
[2020-10-15] MEDS: Naloxone 2 MG/2 ML Syringe IV (18:37)
[2020-10-15 19:15] VITALS: BP 144/98; PULSE 105; RESP 15; O2SAT 100
--- NOTE | 2020-10-15 19:20 | NURSING ---
Walked into the room to find that pt had pulled out his IV, removed himself from the monitor and was incontinent of stool. notified. Pt given paper scrub pants and cleaning wipes to clean himself up with.
--- NOTE | 2020-10-15 19:59 | NURSING ---
1914: Entered room to find that pt had pulled out his iv and is incontinent of stool. This RN gave pt bath wipes and paper scrub pants to clean himself up. MD Ortiz notified that Pepcid not given and verbal order to hold.
[2020-10-15 20:00] VITALS: BP 151/98; PULSE 96; RESP 15; O2SAT 100
== END 2020-10-15 21:26 | disposition home or self-care (01) ==
PROVIDERS: Emergency Provider Emergency Medicine
DX: T63.441A Toxic effect of venom of bees, accidental (unintentional), initial encounter (principal); T78.2XXA Anaphylactic shock, unspecified, initial encounter; T40.601A Poisoning by unspecified narcotics, accidental (unintentional), initial encounter; Y92.9 Unspecified place or not applicable; F17.210 Nicotine dependence, cigarettes, uncomplicated
CPT/HCPCS: 96374; 96375; 99285; A4216; J3490

== ENCOUNTER 2020-12-13 15:37 | Emergency (ER) | payer MEDICAID, SELFPAY ==
[2020-12-13 15:39] VITALS: BP 132/97; PULSE 111; RESP 16; TEMP 35.7; O2SAT 99
--- NOTE | 2020-12-13 16:16 | EX.ED.DYSGE1 ---
HPI History of Present Illness Chief Complaint: Cellulitis [facility] Medical History (Updated 12/13/20 @ 16:27 by Nivia Jernigan) Hx of drainage of abscess SVT (supraventricular tachycardia) Home Medications epinephrine [EpiPen 2-Shun] 0.3 mg IM Q10M PRN PRN #2 ea 10/15/20 [Rx Last Taken Unknown] cephalexin 500 mg PO Q6 #40 cap 12/13/20 [Rx Last Taken Unknown] sulfamethoxazole-trimethoprim [Bactrim DS] 1 tab PO BID #20 tab 12/13/20 [Rx Last Taken Unknown] Allergy/AdvReac Type Severity Reaction Status Date / Time venom-honey bee Allergy Anaphylaxis Verified 12/13/20 15:38 [bee venom (honey bee)] Social History Smoking Status: Current every day smoker tobacco type: cigarettes substance use type: other details: History of polysubstance drug use ROS ROS ED Constitutional Constitutional ED: Denies chills, fever(s) or sweats ENT ENT ED: Denies rhinorrhea or sore throat Cardiovascular Cardiovascular: Denies chest pain Respiratory/Chest Respiratory/Chest: Denies cough or dyspnea Gastrointestinal Gastrointestinal: Denies abdominal pain, diarrhea, nausea or vomiting Musculoskeletal Musculoskeletal: Denies arthralgias or myalgias Integumentary Reports abscess and rash Neurologic Neurologic: Denies headache(s) or weakness Endocrine Endocrinology: Denies polydipsia or polyuria Allergic/Immunologic Allergic/Immunologic ED: Denies urticaria EXAM Physical Exam Const Vital Signs: 12/13/20 15:39 Temperature 96.2 F L Temperature Source Temporal Pulse Rate 111 H Respiratory Rate 16 Blood Pressure 132/97 H Blood Pressure Mean 108 Pulse Ox 99 Patient is sitting calmly in bed. He is using 2 cell phones without difficulty. He is nontoxic in appearance. Positive well nourished and well developed General Appearance ED: well developed and NAD HEENT Reports moist mucous membranes Eyes General Eye ED: Negative for pale conjunctiva or scleral icterus Neck no JVD Chest Wall inspection of chest normal Resp normal respiratory effort and clear to auscultation bilaterally Effort and Inspection: Negative for pain with movement Auscultation: Negative for rales, rhonchi or wheezes Cardio regular rhythm Rate: tachycardic GI normal to inspection, nondistended, normoactive bowel sounds and non-tender Palpation: soft Back/Spine no CVA tenderness Extremity Extremity Narrative: Patient has erythema of the right forearm. It is from the distal third of his forearm up to about the elbow. On the posterior aspect it does just across the elbow. Nothing above that. No proximal swelling. No lymph nodes. In the mid volar medial forearm there is a soft area about 1-1/2 cm around that does appear to be the center of this. It appears to be fluctuant. Neuro Sensorium / Orientation: alert Psych mental status grossly normal Skin Skin Narrative: See above. MDM MDM MDM Narrative Medical decision making narrative: I did talk to the patient about options. I explained that incision and drainage would likely get this better sooner. We will get him on antibiotics. At this point he told me he was on antibiotics recently. However this was about 3 or 4 days ago. He was only on them for about 2 days while in senior living. It started to get better during that time but he did get antibiotics when he left senior living and is coming back. He denies allergies to any antibiotics. Procedure: Incision and drainage of abscess: I discussed options with the patient. He chose to proceed with I&D. The area was cleansed and draped. It was anesthetized with 2 cc of 1% lidocaine locally. 11 blade incision was made over the soft area. There was immediate release of purulent material with little bit of blood. This was further expressed and irrigated. I used hemostats to break up loculations but did not find any. We irrigated and expressed again. He tolerated this reasonably well. I discussed antibiotics and follow-up as well as reasons to return. Discharge Plan Triage Chief Complaint: Cellulitis ED Provider: Donovan Zarate Dx/Rx/DC Orders Clinical Impression: Abscess of arm, Cellulitis of arm, right Instructions: ED Abscess Incision And Drainage, ED Cellulitis Prescriptions: New cephalexin [cephalexin] 500 MG capsule 500 mg PO Q6 Qty: 40 RF: 0 sulfamethoxazole-trimethoprim [Bactrim DS] 800-160 mg tablet 1 tab PO BID Qty: 20 RF: 0 No Action epinephrine [EpiPen 2-Shun] 0.3 mg/0.3 mL auto-injector 0.3 mg IM Q10M PRN PRN (Reason: anaphylaxis) Qty: 2 RF: 0 Primary Care Provider: Care Physician,No Primary Referrals: Art Johnson MD [STAFF PHYSICIAN] - 1 Week if not improving Care Physician,No Primary [Primary Care Provider] - Disposition Disposition: Home, Self Care
[2020-12-13] MEDS: Lidocaine 1% (20 ml mdv) 20 ML Vial INFILT (16:28)
[2020-12-13] MEDS: Smz/Tmp Ds Tablet 1 TABLET PO (17:06)
[2020-12-13] MEDS: Cephalexin 250 MG Capsule 500 MG PO (17:06)
== END 2020-12-13 17:15 | disposition home or self-care (01) ==
LOC: ED 16:32
PROVIDERS: Emergency Provider Emergency Medicine
DX: L03.113 Cellulitis of right upper limb (principal); L02.413 Cutaneous abscess of right upper limb; F17.210 Nicotine dependence, cigarettes, uncomplicated
CPT/HCPCS: 10060; 99283

== ENCOUNTER 2021-12-01 01:47 | Observation (INO) | payer MEDICAID, SELFPAY ==
[2021-12-01] VITALS (8 sets, daily range): BP systolic 104–148; BP diastolic 68–84; PULSE 91–128; RESP 12–20; TEMP 36.4–37.3; O2SAT 94–98; BMI 23.3; BMI 21.4
--- NOTE | 2021-12-01 02:45 | PCM.HP.STD ---
HPI - General General Date of Admission: 12/01/21 Date of Service: 12/01/21 Chief Complaint: Desire for detoxification HPI Narrative GIANLUCA NAJERA, is a 36 M with a significant history of SVT status post ablation; tobacco abuse; and polysubstance IV drug use who was brought to the emergency department for drug overdose now requesting for drug detoxification. Patient was brought by squad after being found that he had overdosed and given Narcan. At the emergency department patient reported withdrawal symptoms of body aches and chills. Patient reportedly is homeless and requested that he stays at a hospital and have detoxification. He reportedly overdosed on fentanyl. He shoots fentanyl/heroin. He report that he has been shooting for a long time. He reported that he was at care home for 6 months and at that time he could not use. He got out of care home on November 10, 2021 and began using again. He reports using about $20 per day. Before he went to care home he was using about 1 g/day. Also he shoots methamphetamine. [facility] Medical History Hx of drainage of abscess Right facial abscess with cellulitis SVT (supraventricular tachycardia) Home Medications NK 12/01/21 [History Last Taken Unknown] Allergy/AdvReac Type Severity Reaction Status Date / Time venom-honey bee Allergy Anaphylaxis Verified 12/01/21 01:48 [bee venom (honey bee)] Family History Other Cancer Surgical History S/P ablation of accessory bypass tract no surgical history Social History Smoking Status: Current every day smoker tobacco type: cigarettes substance use type: other details: History of polysubstance drug use ROS ROS Narrative Pertinent positives and pertinent negatives as noted in HPI. All other systems were reviewed and are negative Vital Signs Vital Signs Vital Signs: 12/01/21 01:48 12/01/21 02:26 Temperature 97.6 F L Temperature Source Temporal Pulse Rate 128 H Respiratory Rate 18 12 Blood Pressure 148/84 H Blood Pressure Mean 105 Pulse Ox 98 96 Oxygen Delivery Method Room Air Room Air Weight Weight: 74 kg Body Mass Index (BMI) 23.3 Physical Exam Narrative Physical exam: General: Well-nourished, well-developed. Head: Normocephalic, atraumatic, no tenderness Eyes: Vision is grossly intact. EOMI ENT, no trauma, moist mucous membranes, no rhinorrhea Neck: Nontender, full range of motion. CVS: Regular rate and rhythm. S1-S2 present. No murmur, gallop or rub. Respiratory : clear to auscultation bilaterally, chest wall nontender, no wheezing Abdomen: Soft, nontender, nondistended, normal bowel sounds, no masses : Deferred Back: Nontender, no CVA tenderness Extremities: Nontender full range of motion, no trauma Skin: Excoriations under the track pérez on the skin. Neuro: Alert, oriented, cranial nerves II through XII grossly intact. Psychiatry: Appears depressed. Monotonic voice. Results Lab / Micro Data Result Diagrams: 12/01/21 02:48 12/01/21 02:48 Assessment & Plan Assessment/Plan (1) Desire for detoxification: (2) Methamphetamine abuse: (3) Tobacco abuse: PLAN: Plan Overdose/opioid dependence and withdrawal Patient be started on Subutex and other adjunctive medications: Gabapentin as needed; dicyclomine as needed; Vistaril as needed; methocarbamol as needed; clonidine as needed; Imodium as needed; trazodone as needed and Zofran as needed. Monitor COWS and CINA score Methamphetamine abuse Counseled Symptomatic management as above. Tobacco abuse Counseled Declined nicotine patch and nicotine gum. DVT prophylaxis Low risk Encourage to ambulate Charges/Coding Visit Charges Inpatient E&M: 60918 Init Hosp L2
[2021-12-01] MEDS: cloNIDine HCl 0.2 MG Tablet PO (02:53)
[2021-12-01] MEDS: Ondansetron 4 MG/2 ML Vial IV (02:53)
[2021-12-01 02:56] LABS: Absolute Lymphocyte Count 1.52 X10^3/uL (0.83-4.51); Absolute Neutrophil Count 5.6 X10^3/uL (2.0-7.7); Basophil# 0.05 X10^3/uL; Basophil% 0.6 % (0-1); Eosinophil# 0.14 X10^3/uL; Eosinophils% 1.7 % (0-5); Hematocrit 35.9 % (40-54); Hemoglobin 11.5 g/dL (13.0-16.5); Lymphocyte # 1.52 X10^3/ul (0.83-4.51); Lymphocyte % 18.8 % (19-41); Mean Corpuscular Hgb 28.5 pg (27.0-32.0); Mean Corpuscular Volume 88.9 fL (80-94); Mean Platelet Vol. 8.9 fl (6.2-12.0); Monocyte# 0.74 X10^3/uL; Monocyte% 9.1 % (0-10); NRBC Flagged by Analyzer 0 % (0-5); Neutrophil # 5.62 X10^3/uL (2.7-7.7); Neutrophil % 69.4 % (47-70); Platelet Count 376 K/mm3 (150-450); RBC Distribution Width CV 13.2 % (11.6-14.6); RBC Distribution Width SD 43.5 fl (35.1-43.9); Red Blood Count 4.04 M/mm3 (4.6-6.2); White Blood Count 8.1 K/mm3 (4.4-11.0)
--- NOTE | 2021-12-01 03:01 | ED.RN ---
Addendum entered by Janice Ross 12/01/21 03:02: mild amount of swelling noted when IV fluids started. removed immediately. Original Note: had IV started by EMS. able to get blood work and given zofran. then IV infiltrated and notified Dr. Hernandez.
[2021-12-01 03:09] LABS: Alcohol, Blood (Medical)-Serum < 3.0 mg/dL; Anion Gap 7 (5-15); BUN 15 mg/dL (7-18); Calcium,Total 8.5 mg/dL (8.5-10.1); Chloride 105 mmol/L (98-107); Creatinine, Serum 0.71 mg/dL (0.70-1.30); EST Glomerular Filtration Rate 132 mL/min (>60); Est Glom Filt Rate - Afr Amer 160 mL/min (>60); Estimated Creatinine Clearance 147.09 ml/min; Glucose 99 mg/dL (74-106); Potassium 3.7 mmol/L (3.5-5.1); Sodium Level 139 mmol/L (136-145)
--- NOTE | 2021-12-01 03:23 | EDS_ITS ---
HPI History of Present Illness Chief Complaint: Overdose Narrative Narrative: Patient is a 36-year-old male who is reportedly homeless. He states that he will use fentanyl and heroin multiple times a day if possible. He states that he injects these drugs into his system. He also states he will occasionally do methamphetamine. He states that today he was using as he normally does to try and get high and overdosed. Secondary to this bystanders called EMS and patient was given Narcan which revived him. Patient states that he is feeling anxious and nervous with nausea and palpitations at this time. He does request help with his opioid addiction and therefore is brought to the hospital for further evaluation [facility] Medical History Hx of drainage of abscess Right facial abscess with cellulitis SVT (supraventricular tachycardia) Home Medications NK 12/01/21 [History Last Taken Unknown] Allergy/AdvReac Type Severity Reaction Status Date / Time venom-honey bee Allergy Anaphylaxis Verified 12/01/21 01:48 [bee venom (honey bee)] Family History Other Cancer Surgical History S/P ablation of accessory bypass tract Social History Smoking Status: Current every day smoker tobacco type: cigarettes substance use type: other details: History of polysubstance drug use [facility] ED Constitutional Constitutional ED: Denies chills or fever(s) ENT ENT ED: Denies sore throat Cardiovascular Cardiovascular: Denies chest pain Respiratory/Chest Respiratory/Chest: Denies cough or dyspnea Gastrointestinal Gastrointestinal: Reports nausea; Denies abdominal pain, diarrhea or vomiting Genitourinary Genitourinary ED: Denies dysuria Musculoskeletal Musculoskeletal: Reports myalgias Integumentary Denies rash Neurologic Neurologic: Denies headache(s) Psychiatric Psychiatric: Reports anxiety Hematologic/Lymphatic Hematologic/Lymphatic: Denies easy bleeding or easy bruising EXAM Physical Exam Const Vital Signs: 12/01/21 01:48 12/01/21 02:26 Temperature 97.6 F L Temperature Source Temporal Pulse Rate 128 H Respiratory Rate 18 12 Blood Pressure 148/84 H Blood Pressure Mean 105 Pulse Ox 98 96 Oxygen Delivery Method Room Air Room Air Positive well nourished and well developed General Appearance ED: well developed HEENT Reports dry mucous membranes Mouth ED: Yes dry mucous membranes Mouth: dry mucous membranes Eyes PERRL and EOMs intact bilaterally Eyes Narrative: Pupils are dilated and sluggish to respond Neck supple Chest Wall palpation of chest normal Resp normal respiratory effort and clear to auscultation bilaterally Cardio regular rhythm Rate: tachycardic GI non-distended Auscultation: hypoactive bowel sounds Palpation: soft Extremity Extremity Narrative: Patient has multiple track pérez to his upper extremities without obvious secondary changes to suggest infection Neuro oriented x3 and CN's II-XII intact bilaterally Sensorium / Orientation: alert Psych Psych Narrative: Patient has a nervous/anxious affect Skin Skin Narrative: Track pérez to the bilateral arms without obvious changes to suggest secondary infection as documented above MDM MDM MDM Narrative Medical decision making narrative: Patient presented with symptoms consistent with opioid withdrawal which would correlate with the fact he was given Narcan. At this time he is requesting treatment for his opioid abuse and therefore medicine will be contacted to evaluate the patient about possible placement in opiate withdrawal/detox program. Medicine evaluated the patient and they agree to keep the patient in the hospital for opioid treatment at this time Discharge Plan Dx/Rx/DC Orders Clinical Impression: Opiate overdose, Substance abuse Disposition Disposition: Acute Care Hospital [facility] Discharge Date/Time: 12/01/21 03:31
--- NOTE | 2021-12-01 03:52 | NURSING ---
pt too lethargic to answer admission questions @ this time - will monitor
--- NOTE | 2021-12-01 06:25 | NURSING ---
PT CONTINUES TO SLEEP, WHEN ATTEMPTING TO ASSESS PT, PT PULLED BLANKETS OVER SELF & TURNED AWAY FROM THIS NURSE
--- NOTE | 2021-12-01 08:46 | PCM.PN.HOSP ---
Subjective Subjective DOS: 12/01/2021 CC: Opioid withdrawal Reports feeling generally unwell, is somewhat achy and sweaty. Denies abdominal pain, denies changes in bowel or bladder, did not report chest pain or shortness of breath. Patient trying to rest and did not voice any other complaints at time of exam Objective Data Objective Data Vital Signs: Vital Signs Temp Pulse Resp BP Pulse Ox O2 Del Method 99.2 F H 111 H 20 H 104/70 94 Room Air 12/01/21 03:37 12/01/21 03:37 12/01/21 03:37 12/01/21 03:37 12/01/21 03:37 12/01/21 03:37 Oxygen Delivery Method Room Air Weight: 67.9 kg Body Mass Index (BMI) 21.4 Intake & Output: Intake and Output for Last 24 Hours 11/29/21 11/30/21 12/01/21 23:59 23:59 23:59 Intake Total 0 / 0 Output Total 0 / 0 Balance 0 / 0 Lab / Micro Data Result Diagrams: 12/01/21 02:48 12/01/21 02:48 Labs: Laboratory Results - last 24 hr 12/01/21 02:48: WBC 8.1, RBC 4.04 L, Hgb 11.5 L, Hct 35.9 L, MCV 88.9, MCH 28.5, MCHC 32.0, RDW Std Deviation 43.5, RDW Coeff of Sedrick 13.2, Plt Count 376, MPV 8.9, Immature Gran % (Auto) 0.400, Neut % (Auto) 69.4, Lymph % (Auto) 18.8 L, [place] % (Auto) 9.1, Eos % (Auto) 1.7, Baso % (Auto) 0.6, Absolute Neuts (auto) 5.6, Absolute Lymphs (auto) 1.52, Nucleated RBC % 0 12/01/21 02:48: Sodium 139, Potassium 3.7, Chloride 105, Carbon Dioxide 27.0, Anion Gap 7, BUN 15, Creatinine 0.71, Estim Creat Clear Calc 147.09, Est GFR (MDRD) Af Amer 160, Est GFR (MDRD) Non-Af 132, BUN/Creatinine Ratio 21.0 H, Glucose 99, Calcium 8.5 12/01/21 02:48: Ethyl Alcohol < 3.0 Physical Exam Const Constitutional Narrative: Awake, appears uncomfortable HEENT normocephalic Eyes Eyes Narrative: EOM grossly intact Neck supple Resp normal respiratory effort and clear to auscultation bilaterally Cardio regular rhythm Cardio Narrative: Slightly tachycardic GI soft to palpation, non-tender and non-distended Extremity Extremity Narrative: No edema appreciated Neuro moves all extremities Neuro Narrative: No overt focal deficits appreciated Psych Psych Narrative: Attempts to be cooperative Assessment & Plan Assessment/Plan (1) Opiate overdose: (2) Methamphetamine abuse: (3) Tobacco abuse: (4) Opioid use disorder, severe, dependence: (5) History of polysubstance use: PLAN: Plan #opioid overdose in setting of opioid use disorder -Given naloxone after fentanyl overdose, now requesting drug detoxification -Does use IV fentanyl/heroin and has for a long time -Was in detention for 6 months and could not use but got out of detention on 11/10/2021 and began using again. Uses about $20 a day, before detention he was using about 1 g a day -Here for detox - Subutex taper initiated - As needed Tylenol, ibuprofen, bowel regimen, gabapentin, Bentyl, Vistaril, methocarbamol, clonidine - As needed trazodone nightly - As needed antiemetics -Once patient begins to clinically improve will discuss further discharge planning #Polysubstance abuse -With history of IV drug use -IV methamphetamine as well as fentanyl/heroin use #Tachycardia Sinus tachycardia, does have history of SVT with ablation #Chronic normocytic anemia Would benefit from outpatient follow-up #Tobacco use Counseled on cessation #DVT ppx: Low risk, ambulatory Rohini Maciel MD Charges/Coding Visit Charges Inpatient E&M: 72365 Subs Hosp L2
--- NOTE | 2021-12-01 18:58 | NURSING ---
PT HAS BEEN SLEEPING ALL DAY AND NOT AWAKENED. DR. ARREDONDO. COWS/CINA NOT COMPLETED YET.
[2021-12-01 19:10] LABS: Amphetamine Urine VISTA POSITIVE (<1000 ng/mL); Barbiturate Urine VISTA NEGATIVE (< 200 ng/mL); Benzodiazepine Urine VISTA POSITIVE (< 200 ng/mL); Cocaine Urine VISTA NEGATIVE (< 300 ng/mL); Ecstacy Urine VISTA POSITIVE (< 500 ng/mL); Methadone Urine VISTA NEGATIVE (< 300 ng/mL); PCP Urine VISTA NEGATIVE (< 25 ng/mL); THC Urine VISTA NEGATIVE (< 50 ng/mL); Vista UDS pH Range 6
[2021-12-02 05:27] VITALS: BP 129/73; PULSE 90; RESP 16; TEMP 36.5; O2SAT 99
[2021-12-02 06:56] LABS: Absolute Neutrophil Count 3.6 X10^3/uL (2.0-7.7); Basophil# 0.05 X10^3/uL; Basophil% 0.8 % (0-1); Eosinophil# 0.17 X10^3/uL; Eosinophils% 2.9 % (0-5); Hematocrit 40.1 % (40-54); Hemoglobin 13.2 g/dL (13.0-16.5); Lymphocyte % 28.7 % (19-41); Mean Corp Hgb Conc 32.9 g/dL (32-36); Mean Corpuscular Hgb 29.4 pg (27.0-32.0); Mean Corpuscular Volume 89.3 fL (80-94); Mean Platelet Vol. 10.4 fl (6.2-12.0); Monocyte# 0.41 X10^3/uL; Monocyte% 6.9 % (0-10); NRBC Flagged by Analyzer 0 % (0-5); Neutrophil # 3.58 X10^3/uL (2.7-7.7); Neutrophil % 60.5 % (47-70); Platelet Count 201 K/mm3 (150-450); RBC Distribution Width CV 13.4 % (11.6-14.6); RBC Distribution Width SD 43.9 fl (35.1-43.9); Red Blood Count 4.49 M/mm3 (4.6-6.2); White Blood Count 5.9 K/mm3 (4.4-11.0)
[2021-12-02 07:13] LABS: ALB/GLOB Ratio 0.6 RATIO (0.9-2.4); AST(SGOT) 27 U/L (15-37); Alanine Aminotransfer ALT/SGPT 31 U/L (16-61); Alkaline Phosphatase 103 U/L (45-117); Anion Gap 7 (5-15); BUN 11 mg/dL (7-18); BUN/Creat Ratio 16.7 RATIO (10-20); Calcium,Total 8.9 mg/dL (8.5-10.1); Chloride 102 mmol/L (98-107); Creatinine, Serum 0.66 mg/dL (0.70-1.30); EST Glomerular Filtration Rate 145 mL/min (>60); Est Glom Filt Rate - Afr Amer 175 mL/min (>60); Estimated Creatinine Clearance 147.17 ml/min; Globulin 4.9 g/dL (2.2-4.2); Glucose 82 mg/dL (74-106); Potassium 4.4 mmol/L (3.5-5.1); Protein, Total 7.9 g/dL (6.4-8.2); Sodium Level 134 mmol/L (136-145)
[2021-12-02 07:28] VITALS: O2SAT 96
[2021-12-02 09:08] VITALS: BP 134/84; PULSE 98; RESP 18; TEMP 36.6; O2SAT 97
[2021-12-02] MEDS: hydrOXYzine PAM 25 MG Capsule 50 MG PO (09:20)
[2021-12-02] MEDS: Buprenorphine HCl 2 MG TAB.SUBL SL ×2 (09:20→17:10)
[2021-12-02] MEDS: Methocarbamol 750 MG Tablet 1500 MG PO (09:20)
[2021-12-02 16:25] VITALS: BP 116/77; PULSE 96; RESP 18; TEMP 36.6; O2SAT 96
--- NOTE | 2021-12-02 17:35 | PCM.PN.HOSP ---
Subjective Subjective Seen and examined today, he looks slightly nervous today but he is alert and appropriate. He states he has not talked to addiction foster care social worker today, patient is currently homeless, he stated he was in senior care for approximately 6 months was clean during that time but began using opiates again within 2 days after discharge from senior care. Objective Data Objective Data Vital Signs: Vital Signs Temp Pulse Resp BP Pulse Ox O2 Del Method 98 F 96 18 116/77 96 Room Air 12/02/21 16:25 12/02/21 16:25 12/02/21 16:25 12/02/21 16:25 12/02/21 16:25 12/02/21 16:25 Oxygen Delivery Method Room Air Weight: 67.9 kg Body Mass Index (BMI) 21.4 Intake & Output: Intake and Output for Last 24 Hours 11/30/21 12/01/21 12/02/21 23:59 23:59 23:59 Intake Total 0 / 0 Output Total 0 / 0 Balance 0 / 0 Lab / Micro Data Result Diagrams: 12/02/21 06:22 12/02/21 06:22 Labs: Laboratory Results - last 24 hr 12/01/21 18:39: Urine Opiates Screen NEGATIVE, Urine Methadone Screen NEGATIVE, Ur Barbiturates Screen NEGATIVE, Ur Phencyclidine Scrn NEGATIVE, Ur Amphetamines Screen POSITIVE H, MDMA (Ecstasy) Screen POSITIVE H, U Benzodiazepines Scrn POSITIVE H, Urine Cocaine Screen NEGATIVE, U Cannabinoids Screen NEGATIVE, Ur Drug Screen Comment 12/02/21 06:22: WBC 5.9, RBC 4.49 L, Hgb 13.2, Hct 40.1, MCV 89.3, MCH 29.4, MCHC 32.9, RDW Std Deviation 43.9, RDW Coeff of Sedrick 13.4, Plt Count 201, MPV 10.4, Immature Gran % (Auto) 0.200, Neut % (Auto) 60.5, Lymph % (Auto) 28.7, [place] % (Auto) 6.9, Eos % (Auto) 2.9, Baso % (Auto) 0.8, Absolute Neuts (auto) 3.6, Absolute Lymphs (auto) 1.70, Nucleated RBC % 0 12/02/21 06:22: Sodium 134 L, Potassium 4.4, Chloride 102, Carbon Dioxide 25.0, Anion Gap 7, BUN 11, Creatinine 0.66 L, Estim Creat Clear Calc 147.17, Est GFR (MDRD) Af Amer 175, Est GFR (MDRD) Non-Af 145, BUN/Creatinine Ratio 16.7, Glucose 82, Calcium 8.9, Total Bilirubin 0.60, AST 27, ALT 31, Alkaline Phosphatase 103, Total Protein 7.9, Albumin 3.0 L, Globulin 4.9 H, Albumin/Globulin Ratio 0.6 L Physical Exam Const alert, oriented x3 and no apparent distress Constitutional Narrative: Patient appears older than his stated age General Appearance: cooperative, well kempt and well developed Orientation / Consciousness: awake, oriented to person, oriented to place and oriented to time HEENT normocephalic, head/scalp atraumatic and moist oral mucous membranes Eyes PERRL, EOMs intact bilaterally and conjunctivae normal Neck supple, no JVD, thyroid normal and no carotid bruits General: trachea midline Resp normal respiratory effort, no retractions, no use of accessory muscles and clear to auscultation bilaterally Auscultation: Negative for rales, rhonchi or wheezes Cardio regular rate, regular rhythm, S1 normal heart sound, S2 normal heart sound, no murmurs, no rub and no gallops GI normal to inspection, nondistended, normoactive bowel sounds, soft to palpation, non-tender and non-distended Extremity no clubbing, cyanosis or edema Skin Skin Narrative: Patient has some scattered eschars over his arms, these do not appear to be infected Neuro oriented x3, CN's II-XII intact bilaterally, moves all extremities, no focal motor deficits and no sensory deficits noted Sensorium / Orientation: awake, alert, oriented to person, oriented to place and oriented to time Speech: speech normal Psych affect normal Assessment & Plan Assessment/Plan (1) Opioid use disorder, severe, dependence: PLAN: Plan 1. Acute opiate withdrawal-patient will remain on his current medications, he will be seen in consultation by addiction foster care social worker tomorrow #2 chronic polysubstance abuse-complicates care, management, recovery, and prognosis Charges/Coding Visit Charges Inpatient E&M: 89678 Subs Hosp L2
[2021-12-02 21:19] VITALS: BP 109/61; PULSE 84; RESP 16; TEMP 37.2; O2SAT 97
[2021-12-03 01:16] VITALS: BP 115/62; PULSE 82; RESP 18; TEMP 36.7; O2SAT 96
[2021-12-03] MEDS: Buprenorphine HCl 2 MG TAB.SUBL SL ×3 (01:18→17:01)
[2021-12-03 05:38] VITALS: BP 107/71; PULSE 76; RESP 16; TEMP 36.5; O2SAT 95
[2021-12-03 09:39] VITALS: BP 119/79; PULSE 91; RESP 18; TEMP 36.4; O2SAT 100
--- NOTE | 2021-12-03 11:40 | ADDICTION ---
Addendum entered by Joanie Nation 12/04/21 10:06: Pt has been approved for [facility]. They will provide transportation. child support investigator time is 10:15/10:30. Original Note: This tag writer met with PT to conduct ASAM, MSE, AUDIT, DUDIT assessments and to plan for d/c. PT A+Ox4 and participated actively. All assessments completed and placed in PT's chart. PT plans to f/u with inpatient treatment services.This worker put in a referral for [facility] and [facility]. PT will need for transportation post d/c from [facility]. Both treatment centers offer that service
--- NOTE | 2021-12-03 12:18 | NURSING ---
unit phone taken to patient to do prescreening for [place] with Mode via phone. camera maintained.
[2021-12-03 16:59] VITALS: BP 124/71; PULSE 80; RESP 16; TEMP 36.9; O2SAT 98
--- NOTE | 2021-12-03 17:33 | PN.HOSP_ITS ---
Subjective Subjective Patient was seen and examined today, according to addiction social contact worker they are trying to find placement in an inpatient facility for detox program after he is discharged. Patient has no complaints of any withdrawal symptoms to this examiner today. Objective Data Objective Data Vital Signs: Vital Signs Temp Pulse Resp BP Pulse Ox O2 Del Method 98.4 F 80 16 124/71 H 98 Room Air 12/03/21 16:59 12/03/21 16:59 12/03/21 16:59 12/03/21 16:59 12/03/21 16:59 12/03/21 16:59 Oxygen Delivery Method Room Air Weight: 67.9 kg Body Mass Index (BMI) 21.4 Intake & Output: Intake and Output for Last 24 Hours 12/01/21 12/02/21 12/03/21 23:59 23:59 23:59 Intake Total 0 / 0 Output Total 0 / 0 Balance 0 / 0 Lab / Micro Data Result Diagrams: 12/02/21 06:22 12/02/21 06:22 Physical Exam Narrative alert, oriented x3 and no apparent distress Constitutional Narrative: Patient appears older than his stated age General Appearance: cooperative, well kempt and well developed Orientation / Consciousness: awake, oriented to person, oriented to place and oriented to time HEENT normocephalic, head/scalp atraumatic and moist oral mucous membranes Eyes PERRL, EOMs intact bilaterally and conjunctivae normal Neck supple, no JVD, thyroid normal and no carotid bruits General: trachea midline Resp normal respiratory effort, no retractions, no use of accessory muscles and clear to auscultation bilaterally Auscultation: Negative for rales, rhonchi or wheezes Cardio regular rate, regular rhythm, S1 normal heart sound, S2 normal heart sound, no murmurs, no rub and no gallops GI normal to inspection, nondistended, normoactive bowel sounds, soft to palpation, non-tender and non-distended Extremity no clubbing, cyanosis or edema Skin Skin Narrative: Patient has some scattered eschars over his arms, these do not appear to be infected Neuro oriented x3, CN's II-XII intact bilaterally, moves all extremities, no focal motor deficits and no sensory deficits noted Sensorium / Orientation: awake, alert, oriented to person, oriented to place and oriented to time Speech: speech normal Psych Patient has flat affect Assessment & Plan Assessment/Plan (1) Opioid use disorder, severe, dependence: PLAN: Plan 1. Acute opiate withdrawal-patient will remain on his current medications, again according to addiction social contact worker, arrangements are being made for the patient to go to a detox facility at the time of discharge from the hospital. #2 chronic polysubstance abuse-complicates care, management, recovery, and prognosis Charges/Coding Visit Charges Inpatient E&M: 45868 Subs Hosp L2
[2021-12-03 22:20] VITALS: BP 122/76; PULSE 80; RESP 18; TEMP 36.6; O2SAT 95
[2021-12-04] MEDS: Buprenorphine HCl 2 MG TAB.SUBL SL ×2 (00:29→09:41)
[2021-12-04 06:10] VITALS: BP 121/83; PULSE 83; RESP 18; TEMP 36.4; O2SAT 95
[2021-12-04] MEDS: hydrOXYzine PAM 25 MG Capsule 50 MG PO (06:13)
--- NOTE | 2021-12-04 10:15 | NURSING ---
DR. RENEE ON UNIT LOOKING TO GO OVER DISCHARGE WITH PATIENT. NOTED PATIENT NOT IN ROOM. PT HAD BEEN SEEN ON [employer] 5MINUTES PRIOR. HAD SEEN RAMP NAVIGATOR WELL. COVERAGE SPECIALIST RN NOTED SEEN PATIENT WALK OUT TOWARDS ELEVATOR. NOTED TUBS IN ROOM HAD BEEN BROKEN INTO AND BELONGINGS GONE. DISCUSSED WITH DR. RENEE
--- NOTE | 2021-12-04 15:25 | PCM.HOSP.N ---
Hospitalist Note I was informed by nursing today that the patient had a ride for inpatient detox admission, the ride was supposed to be here around 10:00 this morning, I came to the floor before 10:00 and noted that the patient's room was empty and the patient's belongings container had been opened, a medical device engineer informed me that the patient had walked down the falcon dressed and went around to the elevators. Patient left AMA
== END 2021-12-04 10:15 | disposition left against medical advice (07) ==
LOC: ED 02:49 → MS3 03:10
PROVIDERS: Internal Medicine; Admitting Provider Hospitalist; Emergency Provider Emergency Medicine; Visit Provider Internal Medicine
DX: T40.2X4A Poisoning by other opioids, undetermined, initial encounter (principal); F11.23 Opioid dependence with withdrawal; F15.10 Other stimulant abuse, uncomplicated; F17.210 Nicotine dependence, cigarettes, uncomplicated; Z59.00 Homelessness unspecified
CPT/HCPCS: 36415; 80048; 80053; 80307; 82077; 85025; 99285; 99406; H0012; A4216; J2405

== ENCOUNTER 2023-04-21 10:17 | Outpatient (REF) | payer SELFPAY ==
[2023-04-21 10:19] VITALS: BP 109/70; PULSE 116; RESP 17; TEMP 36.6; O2SAT 100; BMI 22.8
--- NOTE | 2023-04-21 10:51 | EKG12_ITS ---
Test Reason : CP Blood Pressure : / mmHG Vent. Rate : 116 BPM Atrial Rate : 116 BPM P-R Int : 086 ms QRS Dur : 086 ms QT Int : 314 ms P-R-T Axes : 063 041 037 degrees QTc Int : 436 ms Sinus tachycardia with short WI Otherwise normal ECG Confirmed by MEG IRIZARRY, MARITZA ([id number]), purchase request editor NASRIN POLLOCK ([id number]) on 04/23/2023 6:15:36 AM Referred By: SHERI/MANNY Confirmed By:MARITZA WEAVER MD
[2023-04-21 10:59] LABS: Absolute Lymphocyte Count 1.95 X10^3/uL (0.83-4.51); Absolute Neutrophil Count 7.3 X10^3/uL (2.0-7.7); Basophil# 0.07 X10^3/uL; Basophil% 0.6 % (0-1); Eosinophil# 0.02 X10^3/uL; Eosinophils% 0.2 % (0-5); Hemoglobin 13.3 g/dL (13.0-16.5); Lymphocyte # 1.95 X10^3/ul (0.83-4.51); Lymphocyte % 17.6 % (19-41); Mean Corp Hgb Conc 31.7 g/dL (32-36); Mean Corpuscular Hgb 28.7 pg (27.0-32.0); Mean Corpuscular Volume 90.7 fL (80-94); Mean Platelet Vol. 11.1 fl (6.2-12.0); Monocyte# 1.74 X10^3/uL; Monocyte% 15.7 % (0-10); NRBC Flagged by Analyzer 0 % (0-5); Neutrophil # 7.28 X10^3/uL (2.7-7.7); Neutrophil % 65.5 % (47-70); POSITIVE DIFFERENTIAL YES; Platelet Count 165 K/mm3 (150-450); RBC Distribution Width CV 12.6 % (11.6-14.6); RBC Distribution Width SD 41.3 fl (35.1-43.9); Red Blood Count 4.63 M/mm3 (4.6-6.2); White Blood Count 11.1 K/mm3 (4.4-11.0)
[2023-04-21 11:02] LABS: Differential Indicated SCAN CRITERIA MET
[2023-04-21 11:06] LABS: D-Dimer Quantitative (DVT/PE) 0.41 FEU/ug/m (0.27-0.49)
[2023-04-21 11:13] LABS: Anion Gap 7 (5-15); BUN 16 mg/dL (7-18); BUN/Creat Ratio 15.2 RATIO (10-20); Calcium,Total 9.3 mg/dL (8.5-10.1); Chloride 102 mmol/L (98-107); Creatinine, Serum 1.05 mg/dL (0.70-1.30); EST Glomerular Filtration Rate 84 mL/min (>60); Est Glom Filt Rate - Afr Amer 101 mL/min (>60); Estimated Creatinine Clearance 94.86 ml/min; Glucose 94 mg/dL (74-106); Potassium 4.4 mmol/L (3.5-5.1); Sodium Level 135 mmol/L (136-145); Troponin-I HS 4 pg/mL (3.0-78.0)
[2023-04-21 11:18] VITALS: BP 103/76; PULSE 113; RESP 21; TEMP 37; O2SAT 96
[2023-04-21] MEDS: 0.9% Normal Saline (1000mL) 1,000 ML 1000 ML IV (11:18)
[2023-04-21 11:41] VITALS: BP 96/76; PULSE 97; RESP 19; TEMP 36.7; O2SAT 99
--- NOTE | 2023-04-21 11:43 | ED.VIS.CHEST ---
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 He has been in custody for 9 months. Last 2 to 3 weeks had chest burning. Today felt abnormal heartbeat with palpitations. Reports dyspnea has been waking up in sweats. History of IV drug abuse last use 9 months ago being for being incarcerated. Denies fevers. History of SVT. No other medical history. CVD Risk Factors: Positive for Smoking; Negative for Hypertension, Diabetes, Hypercholesterolemia or Family History 1' </=55 PE Risk Factors: Negative for Recent Travel/Surgery, Recent Immobilization, Prior DVT or PE or OCP + Smoking + >/=35 PFSH PFSH Medical History Hx of drainage of abscess Right facial abscess with cellulitis SVT (supraventricular tachycardia) Home Medications NK 12/01/21 [History Last Taken Unknown] Allergy/AdvReac Type Severity Reaction Status Date / Time venom-honey bee Allergy Anaphylaxis Verified 04/21/23 10:43 [bee venom (honey bee)] Family History Other Cancer Surgical History S/P ablation of accessory bypass tract Social History Smoking Status: Current every day smoker tobacco type: cigarettes substance use type: other details: History of polysubstance drug use [facility] ED Constitutional Constitutional ED: Denies chills, fever(s) or sweats Eyes Eyes: Denies change in vision ENT ENT ED: Denies dysphagia or sore throat Cardiovascular Cardiovascular: Reports chest pain; Denies leg edema, palpitations or racing heartbeat Respiratory/Chest Respiratory/Chest: Reports dyspnea; Denies cough or dyspnea on exertion Gastrointestinal Gastrointestinal: Denies abdominal pain, diarrhea, nausea or vomiting Genitourinary Genitourinary ED: Denies dysuria, hematuria or urinary frequency Musculoskeletal Musculoskeletal: Denies back pain, extremity pain or neck pain Integumentary Denies rash or wounds Neurologic Neurologic: Denies headache(s), paresthesias or weakness EXAM Physical Exam Const Vital Signs: 04/21/23 10:19 04/21/23 10:40 04/21/23 11:18 Temperature 97.8 F 98.6 F Temperature Source Temporal Temporal Pulse Rate 116 H 113 H Respiratory Rate 17 21 H Respiratory Effort Normal Blood Pressure 109/70 103/76 Blood Pressure Mean 83 85 Pulse Ox 100 96 Oxygen Delivery Method Room Air Room Air 04/21/23 11:41 04/21/23 15:37 Temperature 98.1 F 0 F L Temperature Source Temporal Pulse Rate 97 0 L Respiratory Rate 19 H 0 L Respiratory Effort Blood Pressure 96/76 0/0 L Blood Pressure Mean 82 Pulse Ox 99 0 Oxygen Delivery Method Room Air Positive well nourished and well developed General Appearance ED: well developed and NAD HEENT Reports moist mucous membranes normocephalic and atraumatic Eyes PERRL, EOMs intact bilaterally and conjunctivae normal General Eye ED: Yes normal appearance of both eyes Neck no lymphadenopathy and supple General: Negative for tenderness Chest Wall Chest: Negative for tenderness Resp normal respiratory effort and normal air movement Effort and Inspection: symmetric chest movement; Negative for respiratory distress Cardio regular rhythm and no murmurs Rate: tachycardic Peripheral Pulses: pulses 2+ throughout GI normal to inspection, nondistended, normoactive bowel sounds and non-tender Palpation: Negative for guarding or rebound tenderness present Back/Spine no CVA tenderness and no thoracic nor lumbar tenderness Extremity normal to inspection General Extremety ED: Negative for edema or tenderness General Extremity: Negative for edema Neuro oriented x3 and no sensory deficits noted Sensorium / Orientation: awake and alert Skin no rashes or lesions noted and no wounds Heart Score History: Slightly/Non-Suspicious ECG: Normal Age: </= 45 years Risk Factors: 1 or 2 Risk Factors Troponin: </= Normal Limit Score: 1 MDM MDM MDM Narrative Medical decision making narrative: Interventions / MDM: Differential diagnosis: Atypical chest pain, pleurisy Diagnosis considered but do not suspect: PE however low risks Wells criteria with a negative D-dimer. My EKG interpretation: Sinus tachycardia with intermittent PACs. Heart rate 116. Imaging independently reviewed and interpreted by myself: 2 view chest x-ray no acute process also read by radiology. External documents reviewed: N/A Test considered but not ordered:N/A ED course: Patient monitor sinus tachycardia intermittent PACs confirmed with EKG. Tachycardia is given fluids. Will check cardiac labs and D-dimer. Cardiac workup negative D-dimer negative. Two-view chest x-ray ordered and negative. Heart rate improved with fluids. No system dispense went down with results. Clinically stable. Discussed with his recent illness likely pleurisy, D-dimer negative for low concern for PE. He is not hypoxic. Discharge back in police custody. Discharge papers handwritten. Re-evaluation: stable Disposition discussed with patient/family/significant other: Patient Case discussed with consulting clinician: N/A This note was generated with easy2map dictation software. It may contain incorrect words, spelling, and punctuation that were not noted in checking the note before signing. Lab Data Labs: Laboratory Results - last 24 hr 04/21/23 10:36 WBC 11.1 H RBC 4.63 Hgb 13.3 Hct 42.0 MCV 90.7 MCH 28.7 MCHC 31.7 L RDW Std Deviation 41.3 RDW Coeff of Sedrick 12.6 Plt Count 165 MPV 11.1 Immature Gran % (Auto) 0.400 Neut % (Auto) 65.5 Lymph % (Auto) 17.6 L [place] % (Auto) 15.7 H Eos % (Auto) 0.2 Baso % (Auto) 0.6 Absolute Neuts (auto) 7.3 Absolute Lymphs (auto) 1.95 Nucleated RBC % 0 Differential Comment COMMENT Diff Path Review May foll D-Dimer Quant (PE/DVT) 0.41 Sodium 135 L Potassium 4.4 Chloride 102 Carbon Dioxide 26.0 Anion Gap 7 BUN 16 Creatinine 1.05 Estim Creat Clear Calc 94.86 Est GFR (MDRD) Af Amer 101 Est GFR (MDRD) Non-Af 84 BUN/Creatinine Ratio 15.2 Glucose 94 Calcium 9.3 Troponin I High Sens 4 Radiography Diagnostic Testing: Clinical Impression(s) from Imaging Studies Chest X-Ray 04/21/23 11:45 IMPRESSION: No acute cardiopulmonary pathology Electronically Signed: Itz Pate MD at 16:47 EDT , Discharge Plan Triage Chief Complaint: Chest Pain Dx/Rx/DC Orders Clinical Impression: Atypical chest pain, Pleurisy Prescriptions: No Action NK Primary Care Provider: Care Physician,No Primary Referrals: Care Physician,No Primary [Primary Care Provider] -
--- NOTE | 2023-04-21 11:45 | RAD_ITS ---
STUDY: X-RAY CHEST REASON FOR EXAM: Male, 37 years old. pain TECHNIQUE: PA and lateral COMPARISON: None FINDINGS: The lungs are clear and expanded. There is no demonstrated pleural abnormality. Normal size heart. Normal mediastinum and mckayla. Normal visualized pulmonary arteries. Normal visualized aortic arch and descending thoracic aorta. Dorsal spine demonstrates scoliosis and degenerative change. Normal visualized ribs,, and shoulders. Old healed fracture of left clavicle There is no demonstrated abnormality of the visualized soft tissue structures of the upper abdomen. RAD/Chest PA and Lateral IMPRESSION: No acute cardiopulmonary pathology Electronically Signed: Itz Pate MD at 16:47 EDT ,
[2023-04-21 15:37] VITALS: BP 0/0; PULSE 0; RESP 0; TEMP -17.7; TEMP 0; O2SAT 0
[2023-04-24 12:55] LABS: Pathologist Review Reviewed
== END 2023-04-21 14:00 ==
LOC: ED 10:17
PROVIDERS: Visit Provider Emergency Medicine
DX: R07.89 Other chest pain (principal); R00.0 Tachycardia, unspecified; F17.210 Nicotine dependence, cigarettes, uncomplicated; R09.1 Pleurisy
CPT/HCPCS: 71046; 80048; 84484; 85025; 85379; 87631; 93005; 99282; A4216